=== PATIENT | female | born 1950 | race African-American/Black ===

== ENCOUNTER 2017-05-26 10:38 | Inpatient (IN) | payer MEDICARE, BC ==
--- NOTE | 2017-05-14 19:37 | HP ---
HISTORY AND PHYSICAL: DATE OF ADMISSION/SURGERY: 05/26/17 SURGEON: Triny Armendariz MD.* (DICTATED BY SHARIF HERNANDEZ) PROCEDURE: Right total hip arthroplasty. CHIEF COMPLAINT: Right hip pain. HISTORY OF PRESENT ILLNESS: Ms. Leung is a 67-year-old female with complaints of right hip pain secondary to end-stage osteoarthritis. She has failed conservative management and elected to proceed with a right total hip arthroplasty, which is scheduled for 05/26/[address] Armendariz. PAST MEDICAL HISTORY: 1. Hypertension. 2. Asthma. 3. High cholesterol. PAST SURGICAL HISTORY: 1. Hernia repair x2. 2. Hysterectomy. 3. Removal of throat polyps. CURRENT MEDICATIONS: 1. Oxybutynin. 2. Hydrochlorothiazide 25 mg daily. 3. Lisinopril 40 mg daily. 4. Metoprolol 25 mg daily. 5. Pravastatin sodium 20 mg q.h.s. 6. Diclofenac sodium 1% gel as needed. 7. Meloxicam 7.5 mg twice daily as needed. 8. Fexofenadine 180 mg daily. 9. Montelukast sodium 10 mg daily. 10. ProAir HFA. 11. QVAR. 12. EpiPen. ALLERGIES: To PERCOCET, which causes vomiting, EGGS and the FLU SHOT. FAMILY HISTORY: Hypertension, diabetes, pancreatic and stomach cancer. SOCIAL HISTORY: She is a 67-year-old female, she lives alone. She occasionally smokes cigarettes and marijuana and uses occasional alcohol. REVIEW OF SYSTEMS: A complete 14-point review of systems was reviewed with the patient and was positive for asthma. She denies history of DVT, PE, hepatitis C , HIV, or anesthesia problems. PHYSICAL EXAMINATION GENERAL: She is well developed, well nourished, in no acute distress. VITAL SIGNS: She stands 5 feet 5 inches tall, weighs 215 pounds. Her blood pressure is 132/90, her heart rate is 82. HEENT: Normocephalic, atraumatic. NECK: Supple. No palpable lymph nodes. PULMONARY: Lungs are clear to auscultation bilaterally. CARDIO: Regular rate and rhythm. Strong S1, S2. ABDOMEN: Soft, nontender, and nondistended. NEUROLOGICAL: She is alert and oriented x3. Cranial nerves II through XII are intact. MUSCULOSKELETAL: Right lower extremity, the skin is intact. There is no open wounds or abrasions. She has decreased internal and external rotation of the right hip. She walks with an antalgic type gait favoring the right hip. Her lower extremity muscle group strengths are intact at 5/5. She has intact sensation and 2+ dorsalis pedis pulses. ASSESSMENT AND PLAN: Ms. Leung is a 67-year-old female with continued complaints of right hip pain secondary to end-stage osteoarthritis. She has failed conservative management and elected to proceed with a right total hip arthroplasty, which is scheduled for 05/26/[address] Armendariz discussed the risks and benefits of the surgery at today's visit and all of her questions were answered. Coumadin, Colace, and PERCOCET were sent to her pharmacy for postoperative pain control and DVT prophylaxis. She will follow up with Dr. Armendariz 2 weeks after the surgery. SHARIF HERNANDEZ [id number]/[facility] #: [id number] [facility]ASS[facility] HOSPITALGenaro
[~2017-05-26 10:38] MED LIST: Buffered Lidocaine 0.9% SYRIN* 5 ML/SYR SYRINGE INTRADERM ONE; Dexamethasone IV* 4 MG/ML 1 ML (4 MG) IV SLOW PU ONE; Famotidine IV* 10 MG/ML 2 ML (20 mg) IV ONE; Scopolamine 1.5 mg* PATCH TRANSDERM ONE
[2017-05-26] MEDS ORDERED: ceFAZolin 2 GM PREMIX (*) 2 GM/50 ML BAG IVPB ONE (10:43)
[2017-05-26] MEDS ORDERED: Dexamethasone IV* 4 MG/ML 1 ML (4 MG) ONE (10:43)
[2017-05-26] MEDS ORDERED: Scopolamine 1.5 mg* PATCH ONE (10:43)
[2017-05-26] MEDS ORDERED: Famotidine IV* 10 MG/ML 2 ML (20 mg) ONE (10:43)
[2017-05-26] MEDS ORDERED: Buffered Lidocaine 0.9% SYRIN* 5 ML/SYR SYRINGE ONE (10:43)
--- OUTSIDE RECORDS SUMMARY | 2017-05-26 10:45 | XMS REPORT ---
:1950 External Reference #:[id number] Author Organization [employer] Address [address] [address] Phone [phone] Care Team Providers Name Role Phone Lety William MD Primary Care Physician Unavailable Payers Type Date Identification Numbers Payment Provider Subscriber Medicare Primary Effective: Policy Number: Medicare Kaylynn Leung 2017 [id number] PayID: [id number] [address] [place] [address] Medigap Part B Policy Number: [id number] [facility] Kaylynn Leung PayID: [id number] [address] [place] [address] Health Maintenance Effective: Policy Number: BS [facility] Kaylynn Garcia ([facility] [place]) 12/14/2006 [id number] Madhu Expires: 05/03/2008 PayID: [id number] [address] [address] [place] [address] Problems Date Description Provider Status Onset: 10/17/2016 Localized, primary osteoarthritis of the Triny Armendariz M.D. Active pelvic region and thigh Family History Date Family Member(s) Problem(s) Comments General Hypercholesterolemia General Hypertension General Diabetes General Stomach Cancer father General Pancreatic Cancer maternal uncle Social History Type Date Description Comments Lives With Alone Occupation Retired Smokeless Tobacco Never Used Smokeless Tobacco ETOH Use Rarely consumes alcohol Smoking Patient is a former smoker quit March 2013 Exercise Type/Frequency Exercises regularly Allergies, Adverse Reactions, Alerts Date Description Reaction Status Severity Comments 03/09/2007 Percocet active vomiting 03/09/2007 Eggs active 10/17/2016 Flu Shot active 03/09/2007 NKDA inactive Medications Medication Date Status Form Strength Qnty SIG Indications Ordering Provider Coumadin 05/13 Active Tablets 2mg 90tab take 1-3 s tabs by Marcello, mouth at M.D. 5 at night as directed [place] 05/13 Active Tablets 5-325mg 90tab 1-2 tabs s by mouth Marcello, every 4-6 M.D. hours Colace 05/13 Active Capsules 100mg 90cap 1 tab by s mouth 2-3 Marcello, times a M.D. day as needed Oxybutynin Active Unknown (Generic) /0000 Hydrochlorothiazide Active 25mg Unknown / Lisinopril Active 40mg Unknown (Generic) /0000 Metoprolol Active Tablets 25mg 1 by Unknown Succinate ER /0000 ER 24HR mouth every day Pravastatin Sodium Active Tablets 20mg 1 tablet Unknown (Generic) /0000 by mouth once daily at bedtime Diclofenac Sodium Active Gel 1% Unknown / Cyclobenzaprine HCL Active Tablets 5mg take one Unknown /0000 tablet by mouth every 8 hours prn. may take a second tablet if first not effetive. Meloxicam Active Tablets 7.5mg take one Unknown /0000 tab twice daily as needed for pain, avoid other nsaids Fexofenadine HCL Active Tablets 180mg once Unknown /0000 daily Montelukast Sodium Active Tablets 10mg 1 by Unknown (Generic) /0000 mouth every day Proair HFA Active Aerosol 108(90Bas 2 puffs Unknown /0000 e) by mouth mcg/Act every 4 hours as needed Qvar Active Aerosol 80mcg/Act 2 puff Unknown /0000 twice a day Epipen 2-Clay Active Solution 0.3mg/0.3 use as Unknown /0000 Auto-Inje ML directed ct Stephanie 03/09 Hx Tablets 180mg 90tab 1 PO qd Jean E. /2006 s prYeni Griffin MBryant 10/16 Lasix Hx Tablets 40mg 90tab 1 PO qd Barken, / s MD Alberto - 06/02 Proventil Hx Aerosol 90mcg/Act 1unit 2 Puffs Bark, s PO palak Dominguez MD - prn 06/02 Vanceril 00/00 Hx 1unit 2 puffs Other /0000 s po qid Physician - Practices 06/02 Diovan Hx Tablets 160mg 30tab 1 po qd Jean E. /0000 Yeni Reddy M.D. 06/02 Singulair Hx Tablets 10mg 30tab 1 po qd Jean E. /0000 Yeni Reddy M.D. 10/16 Crestor Hx Unknown / - 10/16 Ventolin HFA Hx Unknown / - 10/16 Medications Administered in Office Medication Date Status Form Strength Qnty SIG Indications Ordering Provider Depomedrol Administered Injection Jeri 80MG Melodie Guaman M.D. Depomedrol Administered Injection Jeri 20MG Melodie Guaman M.D. Depomedrol Administered Injection Jeri 20MG Melodie Guaman M.D. Immunizations CPT Code Status Date Vaccine Lot # [id number] Given 02/01/2004 Td (History By Patient) Vital Signs Date Vital Result Comment 05/13/2017 Height 65.5 inches 5'5.50" Weight 215.00 lb w/ shoes Heart Rate 82 /min reg BP Systolic Sitting 132 mmHg Lue, lg cuff BP Diastolic Sitting 90 mmHg Lue, lg cuff Respiratory Rate 16 /min Pain Level 8 right hip/groin BMI (Body Mass Index) 35.2 kg/m2 10/17/2016 Height 65.5 inches 5'5.50" Weight 213.00 lb Heart Rate 68 /min BP Systolic 136 mmHg BP Diastolic 88 mmHg BMI (Body Mass Index) 34.9 kg/m2 06/02/2013 Height 66 inches 5'6" Weight 210.00 lb Heart Rate 83 /min BP Systolic 127 mmHg BP Diastolic 85 mmHg BMI (Body Mass Index) 33.9 kg/m2 04/08/2007 Height 66 inches 5'6" Weight 219.00 lb Heart Rate 76 /min BP Systolic Sitting 156 mmHg BP Diastolic Sitting 76 mmHg BMI (Body Mass Index) 35.3 kg/m2 03/09/2007 Height 66 inches 5'6" Weight 226.00 lb Heart Rate 72 /min BP Systolic Sitting 136 mmHg BP Diastolic Sitting 84 mmHg BMI (Body Mass Index) 36.5 kg/m2 Results Test Date Test Result H/L Range Note CBC W/ Electronic Diff 03/11/2007 White Blood Count 10.3 CUMM 4.8-10.8 1 Abs Basophils 0.1 0-0.2 1 Abs Eosinophils 0.5 0-0.6 1 Absolute Neutrophil Count 5.7 1.5-7.7 1 Abs Lymphs 3.3 1.0-4.8 1 Abs Mononuclear 0.7 0-0.8 1 Basophil % 0.7 % 0-2 1 Hematocrit 43 % 35-47 1 Hemoglobin 14.0 g/dL 12.0-16.0 1 Eosinophil % 4.7 % 0-6 1 Gran % 55.8 % 38-83 1 Lymph % 32.5 % 20-45 1 Mean Corpuscular HGB Cone 32 g/dL 32-36 1 Mean Corpuscular Hemoglob 26 pg Low 27-31 1 Mean Corpuscular Volume 80 um3 79-97 1 Mean Platelet Volume 9.2 um3 7.4-10.4 1 Mononuclear % 6.3 % 1-9 1 Platelet Count 268 CUMM 150-450 1 Red Cell Count 5.42 CUMM High 4.2-5.4 1 Redcell Distribution WDTH 16 % High 10.5-15 1 Comp Metabolic Panel 03/11/2007 One Over Creatinine 1.00 1 Anion Gap 5.0 mmol/L 2-11 1, 2 Albumin/Globulin Ratio 1.3 1-3 1 Albumin 4.1 GM/DL 3.6-5.4 1 Alkaline Phosphatase 86 U/L 30-110 1 Alt (SGPT) 32 U/L 14-54 1 Ast (Sgot) 22 U/L 12-42 1 BUN 20 mg/dL 6-24 1 Calcium 9.5 mg/dL 8.7-10.2 1 Chloride 108 mmol/L 101-111 1 Co2 (Carbon Dioxide) 26.0 mmol/L 22-32 1 Globulin 3.2 GM/DL 2-4 1 Glucose 92 mg/dL 70-105 1 Potassium 4.4 mmol/L 3.5-5.0 1 Sodium 139 mmol/L 135-145 1 Bilirubin Total 0.6 mg/dL 0.4-1.5 1 Total Protein 7.3 GM/DL 6.2-8.1 1 BUN/Creatinine Ratio 20.0 8-20 1 Creatinine 1.0 mg/dL 0.5-1.4 1 Lipid Profile 03/11/2007 Cholesterol/HDL Ratio 5.67 AVERAGE High 1-4.44 1 (Trig/Chol/HDL) Cholesterol 278 mg/dL High Less Than 200 1, 3 Triglyceride 191 mg/dL 40-200 1 High Density Lipoprotein 49 mg/dL 40-60 1 Low Density Lipoprotein 191 mg/dL High Less Than 100 1, 4 Laboratory test finding 03/11/2007 TSH 0.78 MIU/ML 0.34-5.60 1 1 PATIENT MAY HAVE RESULTS PER DOCTOR'S AUTHORIZATION. Questions regarding this report should be directed to your doctor. 2 Anion gap measurement may be of limited value in the presence of any alkalosis, especially in a combined acid base disorder. . 3 Classification: High . 4 CALCULATED LDL APPROXIMATES THE VALUE OF A DIRECT LDL MEASUREMENT. Classification: Very High . Procedures Date CPT Code Description Status Comment 06/02/2013 Inject Tendon Sheath Or Ligament Aponeurosis Eg Completed RT Plantar Fascia 06/02/201343600 Inject Tendon Sheath Or Ligament Aponeurosis Eg Completed Plantar Fascia 09/30/2007 85572 Color Doppler Completed 09/30/2007 02578 Pulse Doppler & Continuous Wave Completed 09/30/2007 76901 Pulse Doppler & Continuous Wave Completed 09/30/2007 34683 Echocardiogram Completed Encounters Type Date Location Provider CPT E/M Dx Office Visit 10/17/2016 [facility] Tr[facility] Armendariz M.D. 42478 M25.551 2:00p Of Millie M16.11 Office Visit 06/02/2013 1:45p [facility] Jeri Guaman, 8[address]11 727.03 Of Millie Rankin 727.04 Office Visit 04/08/2007 10:15a [facility], [address] [facility] 03/09/2007 2:30p [facility], [address] 401.1 [facility] Future Appointment(s):06/08/2017 8:30 am - Triny Armendariz M.D. at [facility].05/26/2017 12:30 pm - SHARIF Arroyo at [facility].A.05/26/2017 12:30 pm - SHARIF Angel at [facility].A.05/26/2017 12:30 pm - Triny Armendariz M.D. at [facility].A.05/13/2017 - Triny Armendariz M.D.M25.551 Pain in right hipFollow up:Follow up: 2 weeks after jitksqlL06.11 Unilateral primary osteoarthritis, right hip
--- OUTSIDE RECORDS SUMMARY | 2017-05-26 10:46 | XMS REPORT ---
:1950 External Reference #:[id number] Author Organization [facility] Address [address] [place] [address] Phone [phone] Care Team Providers Name Role Phone Lety William M.D. 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 Primary Care Physician Unavailable Payers Type Date Identification Numbers Payment Provider Subscriber Medicare Primary Policy Number: [id number] Medicare [place]nn Leung PayID: [id number] [address] [place] [address] Medigap Part B Effective: Policy Number: Trisha Leung 2008 [id number] Health Care PayID: [id number] [address] [place] [address] Problems Date Description Provider Status Onset: 05/30/2009 Essential hypertension Catarina Wei M.D. Active Onset: 05/30/2009 Hyperlipidemia Catarina Wei M.D. Active Onset: 04/17/2015 Mild persistent asthma Enrike Rodriguez M.D. Active Onset: 10/08/2016 Localized, primary osteoarthritis Lety William M.D. Active of the pelvic region and thigh Onset: 05/30/2009 Overweight Catarina Wei M.D. Resolved Resolved: 10/08/2016 Onset: 10/28/2011 Neoplastic disease of uncertain Catarina Wei M.D. Resolved behavior Resolved: 10/08/2016 Onset: 11/07/2011 Disorder of skin AND/OR Catarina Wei M.D. Resolved subcutaneous tissue Resolved: 10/08/2016 Onset: 09/09/2012 Cellulitis Catarina Wei M.D. Resolved Resolved: 10/08/2016 Onset: 10/04/2012 Intrinsic asthma without status Catarina Wei M.D. Resolved asthmaticus Resolved: 10/08/2016 Family History Date Family Member(s) Problem(s) Comments General No family history of breast or colon cancer. 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 Cigarette Use Former Cigarette Smoker 30 yrs ETOH Use Social Alcohol Recreational Drug Use Denies Drug Use Smoking Patient is a former smoker Exercise Type/Frequency Current Exercises regularly Allergies, Adverse Reactions, Alerts Date Description Reaction Status Severity Comments 09/16/2007 Percocet active 09/16/2007 Eggs active 08/30/2008 Dairy active 08/30/2008 [place]ton active 08/30/2008 Apples active 08/30/2008 Carrots active 08/30/2008 Celery active 11/01/2008 Melon active ALL Melons 11/01/2008 Squash active Cough 05/12/2014 [place] active 06/18/2016 Gelatin active Medications Medication Date Status Form Strength Qnty SIG Indications Ordering Provider Acetaminophen-Code 04/29 Active Tablets 300-30mg 30tab 1 tab by M16.11 Lety ine # s mouth Stewart, every 6 M.D. hours as needed Oxybutynin 06/18 Active Tablets 10mg 90tab 1 by mouth N39.46 Lety Chloride ER 24HR s daily Massiel William Metoprolol 06/18 Active Tablets 25mg 90tab 1 by mouth I10 Lety Succinate ER 24HR s every day Massiel William Voltaren 04/16 Active Gel 1% 1unit apply 2 M79.651 s gram to Michele, painful OBSTETRICAL TECH area four times a day Meloxicam 10/16 Active Tablets 7.5mg 60tab take one M15.0 s tablet by Michele, mouth OBSTETRICAL TECH twice a day as needed for osteoarthr itis pain Pravastatin Sodium 05/01 Active Tablets 20mg 90tab 1 by mouth E78.2 s every Michele, night OBSTETRICAL TECH Lisinopril 06/20 Active Tablets 40mg 90tab 1 by mouth I10 s every day Massiel William Hydrochlorothiazid 06/20 Active Tablets 25mg 90tab 1 by mouth I10 s every day Massiel William Albuterol 09/15 Active Aerosol 90mcg/Act 2unit 1-2 Puffs J45.30 s qid pr[facility] 09/15 Active Tablets 10mg 90tab 1 by mouth J45.30 s every day Massiel William Fexofenadine HCL 09/15 Active Tabs 180mg 30tab take 1 Pena . s tablet by Massiel Wei mouth once daily Qvar 00 Active Aerosol 80mcg/Act prn Unknown /0000 Cyclobenzaprine 04/16 Hx Tablets 5mg 30tab 1 by mouth M79.651 Jaclyn HCL /2015 s twice a Michele, - day OBSTETRICAL TECH 04/28 Blood Pressure 10/16 Hx Device 1unit dispense I10 Jaclyn Monitor /2015 s one Hany Bautista/Automatic - machine OBSTETRICAL TECH 06/17 Oxybutynin 01/13 Hx Tablets 5mg 90tab take 2 N39.46 Jaclyn Chloride ER /2014 ER 24HR s tablet by Michele, - mouth once OBSTETRICAL TECH 06/18 Pravastatin Sodium 12/13 Hx Tablets 10mg 30tab 1 by mouth E78.2 Enrike Rodriguez, /2014 s every M.D. - night 05/01 Toviaz 11/10 Hx Tablets 4mg 30tab 1 by mouth 788.33 Enrike Rodriguez, /2014 ER 24HR s every day M.D. - 04/17 Doxycycline 09/09 Hx Tablets 100mg 20tab one tab po 682.8 Pena A. Monohydrate /2012 s bid for 10 Massiel Wei - days 04/05 Azithromycin 04/13 Hx Tablets 250mg 6tabs 2 po today 465.9 Pena A. /2011 and 1 po x Massiel Wei - 4 days 09/09 Prednisone 04/13 Hx Tablets 10mg 30tab 2 bid x 465.9 Pena A. s 3daysKana M.D. - then 3 qd 09/09 x 3 days, /2012 then 1 bid x 3 days then 1 qd x 3 Azithromycin 04/09 Hx Tablets 250mg 6tabs 2 po today Catarina . /2010 and 1 po x Massiel Wei - 4 days 10/06 Oxybutynin 04/02 Hx Tablets 5mg 90tab take 1 788.33 Enrikemolly Rodriguez, Chloride ER /2009 ER 24HR s tablet by Massiel - mouth once 11/10 daily Amlodipine 06/13 Hx Tablets 10mg 90tab 1 po qd 401.9 Catarina A. Besylate /2009 s Massiel Wei - 06/27 Lisinopril-Hydroch 06/06 Hx Tablets 20-25mg 90tab one tab po 401.9 Catarina A. lorothiazide /2009 s daily Massiel Wei - 06/27 Lisinopril-Hydroch 05/30 Hx Tablets 10-12.5mg 90tab 1 po qd 401.9 Catarina A. lorothiazide /2009 s Massiel Wei - 06/06 Metoprolol 08/17 Hx Tablets 25mg 60tab 1 po bid 401.9 Catarina Butcher. Tartrate /2008 s Massiel Wei - 05/30 Crestor 08/02 Hx Tablets 5mg 90tab take 1 272.4 Enrike Rodriguez, s tablet by Massiel - mouth once 11/10 Furosemide 01/26 Hx Tablets 20mg 30tab 1 PO prn Catarina A. s for leg Massiel Wei - swelling 08/17 Hydrochlorothiazid 01/26 Hx Tablets 25mg 30tab take 1 401.9 Catarina A. s tablet Massiel Wei - every 05/30 Chantix 11/03 Hx Misc 1unit 1 starter 305.1 Catarina A. s pack as Massiel Wei - directed, 01/26 refill maintenanc e packs x 3 months Pravachol 10/04 Hx Tablets 10mg 30tab 1 po qd 272.4 Catarina A. kole Wei M.D. - 08/02 Furosemide 09/15 Hx Tablets 40mg 60tab 1 PO daily [facility] Diovan 09/15 Hx Tabs 160mg 30tab take 1 Pena A. /2007 s tablet by Massiel Wei - mouth once 05/30 /2010 Prednisone Hx Tablets 5mg 30tab 1 PO qd Unknown /0000 s - 08/02 Avelox Hx Tablets 400mg 7tabs 1 PO qd Unknown /0000 - 08/02 Immunizations CPT Code Status Date Vaccine Lot # [id number] Given 10/21/2012 Pneumococcal Immunization [id number] Given 10/04/2012 Zostivax [id number] Given 11/01/2008 Tdap Tetanus, W Pertussis [id number] Vital Signs Date Vital Result Comment 04/29/2017 BP Systolic 130 mmHg BP Diastolic 66 mmHg Heart Rate 80 /min Body Temperature 98.1 F Respiratory Rate 18 /min Height 65.5 inches 5'5.50" Weight 216.00 lb BMI (Body Mass Index) 35.4 kg/m2 10/08/2016 BP Systolic 138 mmHg BP Diastolic 88 mmHg Heart Rate 72 /min Body Temperature 98.1 F Respiratory Rate 16 /min Height 65.5 inches 5'5.50" Weight 214.00 lb BMI (Body Mass Index) 35.1 kg/m2 07/08/2016 BP Systolic 140 mmHg BP Diastolic 80 mmHg Heart Rate 76 /min Respiratory Rate 16 /min Height 65.5 inches 5'5.50" Weight 213.00 lb BMI (Body Mass Index) 34.9 kg/m2 06/18/2016 BP Systolic 162 mmHg BP Diastolic 90 mmHg Heart Rate 96 /min Body Temperature 98.1 F Height 65.5 inches 5'5.50" 04/16/2016 BP Systolic 170 mmHg BP Diastolic 96 mmHg Heart Rate 72 /min Body Temperature 98.1 F Respiratory Rate 16 /min Height 65.5 inches 5'5.50" Weight 211.38 lb BMI (Body Mass Index) 34.6 kg/m2 10/17/2015 BP Systolic 122 mmHg BP Diastolic 70 mmHg Heart Rate 72 /min Body Temperature 98.0 F Respiratory Rate 16 /min Height 65.5 inches 5'5.50" Weight 212.00 lb BMI (Body Mass Index) 34.7 kg/m2 04/17/2015 BP Systolic 118 mmHg BP Diastolic 72 mmHg Heart Rate 74 /min Body Temperature 97.7 F Height 65.5 inches 5'5.50" Weight 216.00 lb BMI (Body Mass Index) 35.4 kg/m2 11/10/2014 BP Systolic 120 mmHg BP Diastolic 70 mmHg Heart Rate 72 /min Body Temperature 96.6 F Respiratory Rate 16 /min Height 65.5 inches 5'5.50" Weight 211.00 lb BMI (Body Mass Index) 34.6 kg/m2 05/12/2014 BP Systolic 126 mmHg BP Diastolic 82 mmHg Heart Rate 80 /min Body Temperature 97.7 F Respiratory Rate 16 /min Height 66 inches 5'6" Weight 210.00 lb BMI (Body Mass Index) 33.9 kg/m2 10/04/2013 BP Systolic 124 mmHg BP Diastolic 74 mmHg Heart Rate 90 /min Body Temperature 97.3 F Height 66 inches 5'6" Weight 209.00 lb pt stated BMI (Body Mass Index) 33.7 kg/m2 04/05/2013 BP Systolic 130 mmHg BP Diastolic 80 mmHg Heart Rate 64 /min Body Temperature 97.7 F Respiratory Rate 16 /min Height 66 inches 5'6" 10/04/2012 BP Systolic 124 mmHg BP Diastolic 72 mmHg Heart Rate 70 /min Body Temperature 97.7 F Respiratory Rate 18 /min Height 66 inches 5'6" 09/09/2012 BP Systolic 148 mmHg BP Diastolic 83 mmHg Heart Rate 86 /min Body Temperature 98.4 F Respiratory Rate 16 /min Height 66 inches 5'6" 04/13/2012 BP Systolic 130 mmHg BP Diastolic 80 mmHg Heart Rate 62 /min Body Temperature 96.8 F Height 66 inches 5'6" 11/07/2011 BP Systolic 130 mmHg BP Diastolic 80 mmHg Heart Rate 60 /min Body Temperature 97.7 F Respiratory Rate 20 /min Height 66 inches 5'6" 10/28/2011 BP Systolic 110 mmHg BP Diastolic 72 mmHg Heart Rate 78 /min Body Temperature 97.5 F Height 66 inches 5'6" 10/07/2011 BP Systolic 110 mmHg BP Diastolic 72 mmHg Heart Rate 78 /min Body Temperature 97.4 F Height 66 inches 5'6" 04/09/2011 BP Systolic 122 mmHg BP Diastolic 70 mmHg Heart Rate 90 /min Body Temperature 98.7 F Height 66 inches 5'6" 10/08/2010 BP Systolic 120 mmHg BP Diastolic 80 mmHg Heart Rate 78 /min Height 66 inches 5'6" 04/09/2010 BP Systolic 120 mmHg BP Diastolic 80 mmHg Heart Rate 80 /min Body Temperature 98.3 F Height 66 inches 5'6" 04/02/2010 BP Systolic 138 mmHg BP Diastolic 64 mmHg Heart Rate 78 /min Height 66 inches 5'6" 09/26/2009 BP Systolic 126 mmHg BP Diastolic 82 mmHg Heart Rate 90 /min Height 66 inches 5'6" 06/27/2009 BP Systolic 130 mmHg BP Diastolic 90 mmHg Heart Rate 82 /min 06/20/2009 BP Systolic 148 mmHg BP Diastolic 84 mmHg Heart Rate 84 /min Body Temperature 98.2 F Height 66 inches 5'6" Weight 240.00 lb Stated BMI (Body Mass Index) 38.7 kg/m2 06/13/2009 BP Systolic 148 mmHg BP Diastolic 82 mmHg Heart Rate 84 /min Body Temperature 98.3 F Height 66 inches 5'6" 06/06/2009 BP Systolic 164 mmHg BP Diastolic 94 mmHg Heart Rate 84 /min Body Temperature 98.2 F 05/30/2009 BP Systolic 142 mmHg BP Diastolic 88 mmHg Heart Rate 80 /min Weight 235.00 lb Stated By PT 12/04/2008 BP Systolic 140 mmHg BP Diastolic 90 mmHg Heart Rate 64 /min Body Temperature 97.5 F Respiratory Rate 20 /min 11/01/2008 BP Systolic 158 mmHg BP Diastolic 108 mmHg Heart Rate 72 /min Height 66 inches 5'6" Weight 239.00 lb BMI (Body Mass Index) 38.6 kg/m2 08/30/2008 BP Systolic 112 mmHg BP Diastolic 90 mmHg Heart Rate 72 /min Body Temperature 97.7 F Weight 233.00 lb 08/17/2008 BP Systolic 148 mmHg BP Diastolic 98 mmHg Heart Rate 76 /min Body Temperature 98.0 F Respiratory Rate 20 /min Weight 233.00 lb 08/02/2008 BP Systolic 140 mmHg BP Diastolic 82 mmHg Heart Rate 88 /min Body Temperature 97.9 F Respiratory Rate 20 /min 02/03/2008 BP Systolic 124 mmHg BP Diastolic 72 mmHg Heart Rate 72 /min Height 66 inches 5'6" Weight 224.00 lb BMI (Body Mass Index) 36.2 kg/m2 01/27/2008 BP Systolic 150 mmHg BP Diastolic 98 mmHg Heart Rate 72 /min Height 66 inches 5'6" Weight 218.00 lb BMI (Body Mass Index) 35.2 kg/m2 11/04/2007 BP Systolic 126 mmHg BP Diastolic 78 mmHg Body Temperature 98.3 F Height 66 inches 5'6" Weight 217.00 lb BMI (Body Mass Index) 35.0 kg/m2 10/05/2007 BP Systolic 130 mmHg BP Diastolic 86 mmHg Heart Rate 56 /min Height 66 inches 5'6" Weight 222.00 lb BMI (Body Mass Index) 35.8 kg/m2 09/16/2007 BP Systolic 170 mmHg BP Diastolic 100 mmHg Heart Rate 72 /min Height 66 inches 5'6" Weight 223.00 lb BMI (Body Mass Index) 36.0 kg/m2 Results Test Date Test Result H/L Range Note Laboratory test finding 10/08/2016 TSH 1.04 mIU/L 0.50-6.00 Comprehensive Metabolic Prof 10/08/2016 Sodium 139 mEq/L 134-149 Potassium 4.1 mEq/L 3.6-5.5 Chloride 98 mEq/L 94-112 Carbon Dioxide 23 mEq/L 21-32 Glucose 99 mg/dL 70-105 BUN 17 mg/dL 6-26 Creatinine 0.9 mg/dL 0.6-1.4 BUN/Creat Ratio 18.9 CALC 8.0-36.0 Calcium 10.0 mg/dL 8.6-10.2 Total Protein 6.8 g/dL 6.4-8.3 Albumin 4.5 g/dL 3.8-5.5 Globulin 2.3 g/dL 2.0-4.8 A/G Ratio 2.0 CALC 0.6-2.3 Alk. Phosphatase 71 U/L 30-110 Alt (SGPT) 17 U/L 7-35 Ast (Sgot) 17 U/L 5-34 Total Bilirubin 0.5 mg/dL 0.2-1.3 GFR Non- >60 ml/min/1.73m^ >=60 GFR >60 ml/min/1.73m^ >=60 Complete Blood Count 10/08/2016 WBC 8.5 x10^3/UL 3.6-9.6 RBC 5.27 x10^6/UL 3.90-5.70 HGB 13.7 g/dL 12.1-17.2 HCT 42 % 36-50 MCV 80.0 fL Low 82.2-97.4 MCH 26.0 pg Low 27.6-33.3 MCHC 32.4 g/dL Low 33.0-35.5 RDW 14.9 % High 11.6-13.7 PLT 257 x10^3/UL 150-400 MPV 7.5 fL 7.4-10.4 Gran # 4.9 x10^3/UL 1.5-7.2 Lymph# 3.2 x10^3/UL 0.7-4.9 Craven# 0.4 x10^3/UL 0.1-0.9 Gran % 56.3 % 42.2-75.2 Lymph % 38.3 % 20.5-51.1 Craven% 5.4 % 1.7-9.3 Lipid Profile 10/08/2016 Cholesterol 223 mg/dL High 120-200 Triglycerides 195 mg/dL 30-200 HDL Cholesterol 54 mg/dL 30-85 LDL (Calculated) 130 CALC High 0-129 VLDL Cholesterol 39 mg/dL 0-50 HDL Risk Factor 4.1 CALC 0.0-4.4 Microscopic Examination 04/16/2016 Reflex Microscopic Examination See below : WBC 6-10 /hpf 0 - 5 RBC 0-2 /hpf 0 - 2 Epithelial Cells (non renal) 0-10 /hpf 0 - 10 Epithelial Cells (renal) TNP Casts TNP Cast Type TNP Crystals TNP Crystal Type TNP Mucus Threads Present Not Estab. Bacteria Few None seen/Few Yeast TNP Trichomonas TNP Comment TNP Urinalysis, Complete 04/16/2016 Specific Carey 1.017 1.005-1.030 pH 6.0 5.0-7.5 Urine-Color Yellow Yellow Appearance Clear Clear WBC Esterase 1+ Negative Protein Negative Negative/Trace Glucose Negative Negative Ketones Negative Negative Occult Blood Negative Negative Bilirubin Negative Negative Urobilinogen,Semi-Qn 0.2 EU/dL 0.2-1.0 Nitrite, Urine Negative Negative Microscopic Examination TNP CBC With Differential/Platelet 04/16/2016 WBC 9.0 x10E3/uL 3.4-10.8 RBC 5.21 x10E6/uL 3.77-5.28 Hemoglobin 13.2 g/dL 11.1-15.9 Hematocrit 41.6 % 34.0-46.6 MCV 80 fL 79-97 MCH 25.3 pg Low 26.6-33.0 MCHC 31.7 g/dL 31.5-35.7 RDW 16.4 % High 12.3-15.4 Platelets 339 x10E3/uL 150-379 Neutrophils 49 % Lymphs 37 % Monocytes 8 % Eos 5 % Basos 1 % Immature Cells TNP Neutrophils (Absolute) 4.5 x10E3/uL 1.4-7.0 Lymphs (Absolute) 3.3 x10E3/uL High 0.7-3.1 Monocytes(Absolute) 0.7 x10E3/uL 0.1-0.9 Eos (Absolute) 0.4 x10E3/uL 0.0-0.4 Baso (Absolute) 0.1 x10E3/uL 0.0-0.2 Immature Granulocytes 0 % Immature Grans (Abs) 0.0 x10E3/uL 0.0-0.1 NRBC TNP Hematology Comments: TNP Thinprep/HPV(W/History) 04/16/2016 HPV, Aptima High Negative Negative 1 , 2 16/18,45 Pap Smear 04/16/2016 Diagn See Comment: 1, 3 Adeq See Comment: 1, 4 [email or web address] See Comment: 1, 5 Perfor See Comment: 1, 6 Comm . 1 Note See Comment: 1, 7 Iglbp See Comment: 1, 8 Lipid Panel 04/16/2016 Cholesterol, Total 221 mg/dL High 100-199 Triglycerides 154 mg/dL High 0-149 HDL Cholesterol 51 mg/dL >39 VLDL Cholesterol Manuel 31 mg/dL 5-40 LDL Cholesterol Calc 139 mg/dL High 0-99 Comment: [facility] Laboratory test finding 04/16/2016 PDF [id number] SEE IMAGE 1 Metabolic Panel (14), 04/16/2016 Glucose, Serum 92 mg/dL 65-99 Comprehensive BUN 17 mg/dL 8-27 Creatinine, Serum 0.91 mg/dL 0.57-1.00 eGFR If NonAfricn Am 67 mL/min/1.73 >59 eGFR If Africn Am 77 mL/min/1.73 >59 BUN/Creatinine Ratio 19 11-26 Sodium, Serum 141 mmol/L 134-144 9 Potassium, Serum 4.7 mmol/L 3.5-5.2 Chloride, Serum 99 mmol/L 96-106 10 Carbon Dioxide, Total 25 mmol/L 18-29 Calcium, Serum 9.9 mg/dL 8.7-10.3 Protein, Total, Serum 7.0 g/dL 6.0-8.5 Albumin, Serum 4.4 g/dL 3.6-4.8 Globulin, Total 2.6 g/dL 1.5-4.5 A/G Ratio 1.7 1.1-2.5 Bilirubin, Total 0.3 mg/dL 0.0-1.2 Alkaline Phosphatase, S 77 IU/L 39-117 Ast (Sgot) 18 IU/L 0-40 Alt (SGPT) 15 IU/L 0-32 Microalb/Creat Ratio, Rand 10/17/2015 Creatinine, Urine 92.6 mg/dL Not Estab. 11 Ur Microalbumin, Urine 5.5 ug/mL Not Estab. 11 Microalb/Creat Ratio 5.9 mg/gcreat 0.0-30.0 11 Hemoglobin A1c 10/17/2015 Hemoglobin A1c 6.0 % High 4.8-5.6 11, 12 Comp. Metabolic Panel (14) 10/17/2015 Glucose, Serum 88 mg/dL 65-99 11 BUN 19 mg/dL 8-27 11 Creatinine, Serum 0.95 mg/dL 0.57-1.00 11 eGFR If NonAfricn Am 64 mL/min/1.73 >59 11 eGFR If Africn Am 74 mL/min/1.73 >59 11 BUN/Creatinine Ratio 20 11-26 11 Sodium, Serum 144 mmol/L 134-144 11 Potassium, Serum 4.6 mmol/L 3.5-5.2 11 Chloride, Serum 103 mmol/L 97-108 11 Carbon Dioxide, Total 23 mmol/L 18-29 11 Calcium, Serum 9.5 mg/dL 8.7-10.3 11 Protein, Total, Serum 7.0 g/dL 6.0-8.5 11 Albumin, Serum 4.2 g/dL 3.6-4.8 11 Globulin, Total 2.8 g/dL 1.5-4.5 11 A/G Ratio 1.5 1.1-2.5 11 Bilirubin, Total 0.3 mg/dL 0.0-1.2 11 Alkaline Phosphatase, S 77 IU/L 39-117 11 Ast (Sgot) 16 IU/L 0-40 11 Alt (SGPT) 13 IU/L 0-32 11 Laboratory test finding 10/17/2015 TSH 0.875 uIU/mL 0.450-4.500 11 Thyroxine (T4) Free, Direct, S 1.32 ng/dL 0.82-1.77 11 Lipid Panel 10/17/2015 Cholesterol, Total 211 mg/dL High 100-199 11 Triglycerides 203 mg/dL High 0-149 11 HDL Cholesterol 49 mg/dL >39 11, 13 VLDL Cholesterol Manuel 41 mg/dL High 5-40 11 LDL Cholesterol Calc 121 mg/dL High 0-99 11 Comment: TNP 11 Comp. Metabolic Panel (14) 04/17/2015 Glucose, Serum 92 mg/dL 65-99 14 BUN 10 mg/dL 8-27 14 Creatinine, Serum 0.92 mg/dL 0.57-1.00 14 eGFR If NonAfricn Am 66 mL/min/1.73 >59 14 eGFR If Africn Am 77 mL/min/1.73 >59 14 BUN/Creatinine Ratio 11 - 14 Sodium, Serum 141 mmol/L 134-144 14 Potassium, Serum 4.4 mmol/L 3.5-5.2 14 Chloride, Serum 99 mmol/L 97-108 14 Carbon Dioxide, Total 25 mmol/L 18-29 14 Calcium, Serum 10.2 mg/dL 8.7-10.3 14 Protein, Total, Serum 7.2 g/dL 6.0-8.5 14 Albumin, Serum 4.6 g/dL 3.6-4.8 14 Globulin, Total 2.6 g/dL 1.5-4.5 14 A/G Ratio 1.8 1.1-2.5 14 Bilirubin, Total 0.4 mg/dL 0.0-1.2 14 Alkaline Phosphatase, S 80 IU/L 39-117 14 Ast (Sgot) 18 IU/L 0-40 14 Alt (SGPT) 17 IU/L 0-32 14 Lipid Panel 04/17/2015 Cholesterol, Total 256 mg/dL High 100-199 14 Triglycerides 167 mg/dL High 0-149 14 HDL Cholesterol 64 mg/dL >39 14, 15 VLDL Cholesterol Manuel 33 mg/dL 5-40 14 LDL Cholesterol Calc 159 mg/dL High 0-99 14 Comment: DNR 14 Comprehensive Metabolic 11/10/2014 Glucose 96 mg/dL 70-100 14 BUN 12 mg/dL 4-18 14 Creatinine, Serum 0.94 mg/dL 0.50-1.10 14 Sodium 139 mmol/L 136-146 14 Potassium 4.0 mmol/L 3.5-5.3 14 Chloride 104 mmol/L 98-110 14 Carbon Dioxide 30 mmol/L 20-32 14 Albumin 4.6 g/dL 3.5-4.7 14 Protein, Total 7.4 g/dL 6.4-8.3 14 Calcium 10.5 mg/dL High 8.4-10.4 14 Alkaline Phosphatase 83 U/L 10-118 14 Sgot (Ast) 24 U/L 3-40 14 SGPT (Alt) 21 U/L 7-50 14 Bilirubin, Total 0.50 mg/dL 0.30-1.20 14 Lipid Panel 11/10/2014 Cholesterol, Total 250 mg/dL <200 14 Triglycerides 172 mg/dL <150 14 HDL Cholesterol 52 mg/dL 40-60 14 Chol/HDL Cholesterol 4.8 14, 16 LDL Cholesterol, Calc. 164 mg/dL 14, 17 LDL/HDL Cholesterol 3.2 14, 18 Egfr (Calculated) 11/10/2014 Estimated GFR (CALCULATED) 14 Egfr 65 14, 19 Egfr, -[place] 75 14, 20 Comprehensive Metabolic 05/12/2014 Glucose 91 mg/dL 70-100 21 BUN 13 mg/dL 4-18 21 Creatinine, Serum 0.85 mg/dL 0.50-1.10 21 Sodium 142 mmol/L 136-146 21 Potassium 3.8 mmol/L 3.5-5.3 21 Chloride 108 mmol/L 98-110 21 Carbon Dioxide 30 mmol/L 20-32 21 Albumin 4.7 g/dL 3.5-4.7 21 Protein, Total 7.6 g/dL 6.4-8.3 21 Calcium 10.0 mg/dL 8.4-10.4 21 Alkaline Phosphatase 86 U/L 10-118 21 Sgot (Ast) 23 U/L 3-40 21 SGPT (Alt) 22 U/L 7-50 21 Bilirubin, Total 0.40 mg/dL 0.30-1.20 21 Lipid Panel 05/12/2014 Cholesterol, Total 206 mg/dL <200 21 Triglycerides 119 mg/dL <150 21 HDL Cholesterol 57 mg/dL 40-60 21 Chol/HDL Cholesterol 3.6 21, 22 LDL Cholesterol, Calc. 125 mg/dL 21, 23 LDL/HDL Cholesterol 2.2 21, 24 Egfr (Calculated) 05/12/2014 Estimated GFR (CALCULATED) 21 Egfr 73 21, 25 Egfr, -[place] 85 21, 26 Egfr (Calculated) 04/05/2013 Estimated GFR (CALCULATED) 27 Egfr >60 27, 28 Egfr, -[place] >60 27, 29 Comprehensive Metabolic 04/05/2013 Glucose 91 mg/dL 70-100 27 BUN 13 mg/dL 4-18 27 Creatinine, Serum 0.82 mg/dL 0.50-1.10 27 Sodium 142 mmol/L 136-146 27 Potassium 4.3 mmol/L 3.5-5.3 27 Chloride 106 mmol/L 98-110 27 Carbon Dioxide 29 mmol/L 20-32 27 Albumin 4.3 g/dL 3.5-4.7 27 Protein, Total 7.2 g/dL 6.4-8.3 27 Calcium 9.7 mg/dL 8.4-10.4 27 Alkaline Phosphatase 82 U/L 10-118 27 Sgot (Ast) 21 U/L 3-40 27 SGPT (Alt) 19 U/L 7-50 27 Bilirubin, Total 0.60 mg/dL 0.30-1.20 27 Lipid Panel 04/05/2013 Cholesterol, Total 190 mg/dL <200 27 Triglycerides 128 mg/dL <150 27 HDL Cholesterol 53 mg/dL 40-60 27 Chol/HDL Cholesterol 3.6 27, 30 LDL Cholesterol, Calc. 111 mg/dL 27, 31 LDL/HDL Cholesterol 2.1 27, 32 Laboratory test finding 09/09/2012 Wound Culture Normal skin cristel <SEE 33 NOTE> Comprehensive Metabolic 04/13/2012 Glucose 97 mg/dL 70-100 34 BUN 16 mg/dL 4-18 34 Creatinine, Serum 1.01 mg/dL 0.50-1.10 34 Sodium 142 mmol/L 136-146 34 Potassium 4.3 mmol/L 3.5-5.3 34 Chloride 103 mmol/L 98-110 34 Carbon Dioxide 31 mmol/L 20-32 34 Albumin 4.6 g/dL 3.5-4.7 34 Protein, Total 7.5 g/dL 6.4-8.3 34 Calcium 9.6 mg/dL 8.4-10.4 34 Alkaline Phosphatase 115 U/L 10-118 34 Sgot (Ast) 23 U/L 3-40 34 SGPT (Alt) 41 U/L 7-50 34 Bilirubin, Total 0.30 mg/dL 0.30-1.20 34 Ua - Non Micro (Fma) 04/13/2012 Appearance CLEAR Color YELLOW Glucose NEG Bilirubin NEG Ketones NEG SP Grav 1.015 Blood NEG PH 6.0 Protein NEG Urobil 0.2 Nitrite NEG Leukocytes (Fma/[facility]rex) NEG Egfr (Calculated) 04/13/2012 Estimated GFR (CALCULATED) 34 Egfr 56 34, 35 Egfr, -[place] >60 34, 36 Laboratory test finding 10/28/2011 Surgical Pathology SEE NOTE 37 Lipid Panel 10/07/2011 Cholesterol, Total 177 mg/dL <200 38 Triglycerides 183 mg/dL <150 38 HDL Cholesterol 45 mg/dL 40-60 38 Chol/HDL Cholesterol 3.9 38, 39 LDL Cholesterol, Calc. 95 mg/dL 38, 40 LDL/HDL Cholesterol 2.1 38, 41 Comprehensive Metabolic 10/07/2011 Glucose 100 mg/dL 70-100 38 BUN 14 mg/dL 4-18 38 Creatinine, Serum 1.01 mg/dL 0.50-1.10 38 Sodium 139 mmol/L 136-146 38 Potassium 3.9 mmol/L 3.5-5.3 38 Chloride 102 mmol/L 98-110 38 Carbon Dioxide 30 mmol/L 20-32 38 Albumin 4.5 g/dL 3.5-4.7 38 Protein, Total 7.1 g/dL 6.4-8.3 38 Calcium 9.9 mg/dL 8.4-10.4 38 Alkaline Phosphatase 77 U/L 10-118 38 Sgot (Ast) 24 U/L 3-40 38 SGPT (Alt) 23 U/L 7-50 38 Bilirubin, Total 0.70 mg/dL 0.30-1.20 38 Egfr (Calculated) 10/07/2011 Estimated GFR (CALCULATED) 38 Egfr 56 38, 42 Egfr, -[place] >60 38, 43 Laboratory test finding 04/09/2011 Cytology <SEE 44 NOTE> Comprehensive Metabolic 10/31/2010 Glucose 88 mg/dL 70-100 38 BUN 20 mg/dL High 4-18 38 Creatinine, Serum 0.83 mg/dL 0.50-1.10 38 Sodium 144 mmol/L 136-146 38 Potassium 3.9 mmol/L 3.5-5.3 38 Chloride 106 mmol/L 98-110 38 Carbon Dioxide 29 mmol/L 20-32 38 Albumin 4.5 g/dL 3.5-4.7 38 Protein, Total 7.1 g/dL 6.4-8.3 38 Calcium 10.3 mg/dL 8.4-10.4 38 Alkaline Phosphatase 68 U/L 10-118 38 Sgot (Ast) 23 U/L 3-40 38 SGPT (Alt) 28 U/L 7-50 38 Bilirubin, Total 0.50 mg/dL 0.30-1.20 38 Lipid Panel 10/31/2010 Cholesterol, Total 181 mg/dL <200 38 Triglycerides 202 mg/dL <150 38 HDL Cholesterol 51 mg/dL 40-60 38 Chol/HDL Cholesterol 3.5 38, 45 LDL Cholesterol, Calc. 90 mg/dL 38, 46 LDL/HDL Cholesterol 1.8 38, 47 Egfr (Calculated) 10/31/2010 Estimated GFR (CALCULATED) 38 Egfr >60 38, 48 Egfr, -[place] >60 38, 49 Laboratory test finding 10/31/2010 TSH (Thyrotropin) 1.620 uIU/ml 0.350- 5.500 38 Hepatic (Liver) Panel 04/02/2010 Albumin 4.6 g/dL 3.5-4.7 50 Protein, Total 7.4 g/dL 6.4-8.3 50 Alkaline Phosphatase 63 U/L 10-118 50 Sgot (Ast) 24 U/L 3-40 50 SGPT (Alt) 32 U/L 7-50 50 Bilirubin, Total 0.50 mg/dL 0.30-1.20 50 Bilirubin, Direct 0.12 mg/dL 0.00-0.40 50 Bilirubin, Indirect 0.38 mg/dL 0.10-1.10 50 Basic Metabolic Panel 04/02/2010 Glucose 96 mg/dL 70-100 50 BUN 14 mg/dL 4-18 50 Creatinine, Serum 1.03 mg/dL 0.50-1.10 50 Sodium 143 mmol/L 136-146 50 Potassium 4.2 mmol/L 3.5-5.3 50 Chloride 104 mmol/L 98-110 50 Carbon Dioxide 28 mmol/L 20-32 50 Calcium 9.9 mg/dL 8.4-10.4 50 Egfr (Calculated) 04/02/2010 Estimated GFR (CALCULATED) 50 Egfr 55 50, 51 Egfr, -[place] >60 50, 52 Lipid Panel 11/13/2009 Cholesterol, Total 185 mg/dL <200 53 Triglycerides 184 mg/dL <150 53 HDL Cholesterol 52 mg/dL 40-60 53 Chol/HDL Cholesterol 3.6 53, 54 LDL Cholesterol, Calc. 96 mg/dL 53, 55 LDL/HDL Cholesterol 1.8 53, 56 GFR Calculated 11/13/2009 GFR (Calculated) 59 53, 57 Comprehensive Metabolic 11/13/2009 Glucose 91 mg/dL 70-100 53 BUN 20 mg/dL High 4-18 53 Creatinine, Serum 0.97 mg/dL 0.50-1.10 53 Sodium 141 mmol/L 136-146 53 Potassium 4.0 mmol/L 3.5-5.3 53 Chloride 104 mmol/L 98-110 53 Carbon Dioxide 34 mmol/L High 20-32 53 Albumin 4.3 g/dL 3.5-4.7 53 Protein, Total 6.8 g/dL 6.4-8.3 53 Calcium 9.4 mg/dL 8.4-10.4 53 Alkaline Phosphatase 59 U/L 10-118 53 Sgot (Ast) 24 U/L 3-40 53 SGPT (Alt) 33 U/L 7-50 53 Bilirubin, Total 0.40 mg/dL 0.30-1.20 53 Basic Metabolic Panel 06/27/2009 Glucose 94 mg/dL 70-100 58 BUN 22 mg/dL High 4-18 58 Creatinine, Serum 1.17 mg/dL High 0.50-1.10 58 Sodium 143 mmol/L 136-146 58 Potassium 4.0 mmol/L 3.5-5.3 58 Chloride 103 mmol/L 98-110 58 Carbon Dioxide 29 mmol/L 20-32 58 Calcium 10.4 mg/dL 8.4-10.4 58 GFR Calculated 06/27/2009 GFR (Calculated) 48 58, 59 Comprehensive Metabolic 05/30/2009 Glucose 96 mg/dL 70-100 60 BUN 16 mg/dL 4-18 60 Creatinine, Serum 0.81 mg/dL 0.50-1.10 60 Sodium 142 mmol/L 136-146 60 Potassium 3.6 mmol/L 3.5-5.3 60 Chloride 101 mmol/L 98-110 60 Carbon Dioxide 29 mmol/L 20-32 60 Albumin 4.6 g/dL 3.5-4.7 60 Protein, Total 7.2 g/dL 6.4-8.3 60 Calcium 9.9 mg/dL 8.4-10.4 60 Alkaline Phosphatase 62 U/L 10-118 60 Sgot (Ast) 24 U/L 3-40 60 SGPT (Alt) 42 U/L 7-50 60 Bilirubin, Total 0.50 mg/dL 0.30-1.20 60 Urinalysis W/ Micro (CX) 05/30/2009 Urine Color COLORLESS Yellow 60 Urine Appearance CLEAR Clear 60 Urine Specific Carey 1.008 1.005-1.030 60 Urine Leukocytes NEGATIVE Negative 60 Urine Nitrite NEGATIVE Negative 60 Urine PH 5.0 5.0-8.0 60 Urine Protein NEGATIVE mg/dL Negative 60 Urine Glucose NEGATIVE mg/dL Negative 60 Urine Ketones NEGATIVE mg/dL Negative 60 Urine Urobilinogen NORMAL mg/dL Normal Or <1 60 Urine Bilirubin NEGATIVE Negative 60 Urine Occult Blood NEGATIVE Negative 60 Microscopic, Reflex 05/30/2009 Microscopic, Reflex NOT INDICATED 60 GFR Calculated 05/30/2009 GFR (Calculated) >60 60, 61 Ua - Micro (Fma) 12/04/2008 Appearance clear Color yellow Glucose neg Bilirubin neg Ketones neg SP Grav 1.010 Blood trace PH 6.0 Protein neg Urobil 0.2 Nitrite neg Leukocytes (Fma/CMC/Centrex) neg Hyaline - /Lpf Granular - /Lpf WBC (Fma,Centrex) 1-2 RBC 0-1 Mucus - /Lpf Epith rare /Lpf Bacteria rare /Hpf Amorphous - /Lpf Crystals, Fluid (Fma/CMC/CTX) - Z#Comments - Lipid Panel 11/01/2008 Cholesterol, Total 177 mg/dL <200 62 Triglycerides 209 mg/dL <150 62 HDL Cholesterol 48 mg/dL 40-60 62 Chol/HDL Cholesterol 3.7 62, 63 LDL Cholesterol, Calc. 87 mg/dL 62, 64 LDL/HDL Cholesterol 1.8 62, 65 Comprehensive Metabolic 11/01/2008 Glucose 95 mg/dL 70-100 62 BUN 15 mg/dL 4-18 62 Creatinine, Serum 0.88 mg/dL 0.50-1.10 62, 66 Sodium 141 mmol/L 136-146 62 Potassium 3.8 mmol/L 3.5-5.3 62 Chloride 102 mmol/L 98-110 62 Carbon Dioxide 22 mmol/L 20-32 62 Albumin 4.2 g/dL 3.5-4.7 62 Protein, Total 6.8 g/dL 6.4-8.3 62 Calcium 9.4 mg/dL 8.4-10.4 62 Alkaline Phosphatase 60 U/L 10-118 62 Sgot (Ast) 26 U/L 3-40 62 SGPT (Alt) 28 U/L 7-50 62 Bilirubin, Total 0.30 mg/dL 0.30-1.20 62 GFR Calculated 11/01/2008 GFR (Calculated) >60 62, 67 Ua - Micro (Fma) 11/01/2008 Appearance CLEAR Color YELLOW Glucose NEG Bilirubin NEG Ketones NEG SP Grav 1.010 Blood TRACE-LYSED PH 6.5 Protein NEG Urobil 0.2 Nitrite NEG Leukocytes (Fma/CMC/Centrex) NEG Hyaline - /Lpf Granular - /Lpf WBC (Fma,Centrex) 0-1 RBC 2-3 Mucus - /Lpf Epith RARE /Lpf Bacteria - /Hpf Amorphous - /Lpf Crystals, Fluid (Fma/CMC/CTX) - Z#Comments - Laboratory test 11/01/2008 Thin Prep SEE NOTE 68 finding W/HPV(Lsil/PATRICIA/Asc) GFR, Calculated 08/02/2008 GFR (Calculated) 49 62, 69 Lipid Profile 08/02/2008 Cholesterol, Total 221 mg/dL High 120-200 62, 70 HDL Cholesterol 57 mg/dL 40-60 62 LDL Cholesterol, Calc. 139 mg/dL <130 62, 71 Triglycerides 125 mg/dL 62, 72 LDL/HDL Cholesterol 2.4 62, 73 Chol/HDL Cholesterol 3.9 62, 74 Comprehensive Metabolic 08/02/2008 Glucose 101 mg/dL High 70-100 62 BUN 19 mg/dL High 4-18 62 Creatinine, Serum 1.2 mg/dL 0.5-1.2 62 Sodium 143 mmol/L 136-146 62 Potassium 3.9 mmol/L 3.5-5.3 62 Chloride 107 mmol/L 98-110 62 Carbon Dioxide 25 mmol/L 20-32 62 Albumin 4.4 g/dL 3.5-4.7 62 Protein, Total 7.1 g/dL 6.4-8.3 62 Calcium 9.9 mg/dL 8.4-10.4 62 Alkaline Phosphatase 70 U/L 10-118 62 Sgot (Ast) 25 U/L 3-40 62 SGPT (Alt) 30 U/L 7-50 62 Bilirubin, Total 0.30 mg/dL 0.30-1.20 62 Surgical Pathology 06/19/2008 Surgical Pathology <SEE 75 NOTE> Basic Metabolic 02/24/2008 BUN 20 mg/dL 6-26 Profile Calcium 9.6 mg/dL 8.6-10.2 Chloride 98 mEq/L 94-112 Creatinine 1.1 mg/dL 0.6-1.4 Carbon Dioxide 26 mEq/L 21-32 Glucose 90 mg/dL 70-105 Sodium 141 mEq/L 134-149 Potassium 3.9 mEq/L 3.6-5.5 BUN/Creat Ratio 18.5 Calc 8.0-36.0 Ua - Micro (Fma) 02/24/2008 Appearance clear Color yellow Glucose, Urine (Fma/CMC/CTX) - Bilirubin - Ketones - SP Grav <=1.005 Blood trace intact PH 5.0 Protein - Urobil 0.2eu/dl Nitrite - Leukocytes (Fma/CMC/Centrex) - Hyaline - /Lpf Granular - /Lpf WBC (Fma,Centrex) 1-2 RBC 1-2 Mucus (Fma/CBC/Centrex) - /Lpf Epith rare /Lpf Bacteria rare /Hpf Amorphous (Fma/CMC/Centrex) - /Lpf Crystals, Fluid (Fma/CMC/CTX) - Z#Comments - Lipid Profile 02/01/2008 Cholesterol 189 mg/dL 120-200 76 HDL 58 mg/dL 30-85 76 Triglycerides 116 mg/dL 30-200 76 HDL Risk Factor 3.2 CALC Low 4.2-7.0 76 LDL (Calculated) 107 CALC 0-129 76 VLDL (Calculated) 23 mg/dL 0-50 76 Comprehensive Metabolic Prof 02/01/2008 Albumin 4.1 g/dL 3.8-5.5 76 Alk. Phos. 79 U/L 30-110 76 Alt (SGPT) 19 U/L 7-35 76 Ast (Sgot) 10 U/L 5-34 76 BUN 27 mg/dL High 6-26 76, 77 Calcium 9.6 mg/dL 8.6-10.2 76 Chloride 97 mEq/L 94-112 76 Creatinine 1.4 mg/dL 0.6-1.4 76 Carbon Dioxide 29 mEq/L 21-32 76 Glucose 85 mg/dL 70-105 76 Sodium 140 mEq/L 134-149 76 Total Bilirubin 0.2 mg/dL 0.2-1.3 76 Total Protein 6.9 g/dL 6.3-8.1 76 Potassium 4.5 mEq/L 3.6-5.5 76 Globulin 2.8 g/dL 2.0-4.8 76 A/G Ratio 1.4 Calc 0.6-2.2 76 BUN/Creat Ratio 20.2 Calc 8.0-36.0 76 Ua - Micro (Fma) 01/27/2008 Appearance CLEAR Color YELLOW Glucose, Urine (Fma/CMC/CTX) NEG Bilirubin NEG Ketones NEG SP Grav >1.030 Blood MODERATE PH 5.5 Protein SSA TRACE Urobil 0.2 Nitrite NEG Leukocytes (Fma/CMC/Centrex) NEG Hyaline - /Lpf Granular - /Lpf WBC (Fma,Centrex) 0-2 RBC 5-10 Mucus (Fma/CBC/Centrex) MODERATE AMT /Lpf Epith OCC /Lpf Bacteria TRACE /Hpf Amorphous (Fma/CMC/Centrex) - /Lpf Crystals, Fluid (Fma/CMC/CTX) - Z#Comments - Comprehensive Metabolic Prof 11/04/2007 Albumin 4.3 g/dL 3.8-5.5 Alk. Phos. 70 U/L 30-110 Alt (SGPT) 22 U/L 7-35 Ast (Sgot) 20 U/L 5-34 BUN 17 mg/dL 6-26 Calcium 9.7 mg/dL 8.6-10.2 Chloride 102 mEq/L 94-112 Creatinine 1.1 mg/dL 0.6-1.4 Carbon Dioxide 25 mEq/L 21-32 Glucose 101 mg/dL 70-105 Sodium 143 mEq/L 134-149 Total Bilirubin 0.4 mg/dL 0.2-1.3 Total Protein 7.1 g/dL 6.3-8.1 Potassium 3.9 mEq/L 3.6-5.5 Globulin 2.9 g/dL 2.0-4.8 A/G Ratio 1.5 Calc 0.6-2.2 BUN/Creat Ratio 15.7 Calc 8.0-36.0 Comprehensive Metabolic Prof 09/30/2007 Albumin 4.4 g/dL 3.8-5.5 76 Alk. Phos. 70 U/L 30-110 76 Alt (SGPT) 19 U/L 7-35 76 Ast (Sgot) 22 U/L 5-34 76 BUN 19 mg/dL 6-26 76 Calcium 9.9 mg/dL 8.6-10.2 76 Chloride 104 mEq/L 94-112 76 Creatinine 1.1 mg/dL 0.6-1.4 76 Carbon Dioxide 23 mEq/L 21-32 76 Glucose 99 mg/dL 70-105 76 Sodium 142 mEq/L 134-149 76 Total Bilirubin 0.3 mg/dL 0.2-1.3 76 Total Protein 7.0 g/dL 6.3-8.1 76 Potassium 4.5 mEq/L 3.6-5.5 76 Globulin 2.6 g/dL 2.0-4.8 76 A/G Ratio 1.7 Calc 0.6-2.2 76 BUN/Creat Ratio 17.5 Calc 8.0-36.0 76 Lipid Profile 09/30/2007 Cholesterol 257 mg/dL High 120-200 76 HDL 50 mg/dL 30-85 76 Triglycerides 209 mg/dL High 30-200 76 HDL Risk Factor 5.1 CALC 4.2-7.0 76 LDL (Calculated) 165 CALC High 0-129 76 VLDL (Calculated) 42 mg/dL 0-50 76 Laboratory test finding 09/30/2007 TSH 1.27 mIU/L 0.50-6.00 76 1 Source.............Cervix Other..............Post Menopausal No. of containers..01 CYTYC Thin Prep Vial [id number] 2 This test detects fourteen high-risk HPV types (16/18/31/33/35/39/45/ 51/52/56/58/59/66/68) without differentiation. 3 NEGATIVE FOR INTRAEPITHELIAL LESION AND MALIGNANCY. 4 Satisfactory for evaluation. Endocervical and/or squamous metaplastic cells (endocervical component) are present. 5 Z12.4 6 Terrence Leung, Hydraulic Auto Jack Mechanic (ASCP) 7 The Pap smear is a screening test designed to aid in the detection of premalignant and malignant conditions of the uterine cervix. It is not a diagnostic procedure and should not be used as the sole means of detecting cervical cancer. Both false-positive and false-negative reports do occur. 8 This liquid based ThinPrep(R) pap test was screened with the use of an image guided system. 9 Please note reference interval change 10 Please note reference interval change 11 REFRIGERATED 12 Pre-diabetes: 5.7 - 6.4 Diabetes: >6.4 Glycemic control for adults with diabetes: <7.0 13 According to ATP-III Guidelines, HDL-C >59 mg/dL is considered a negative risk factor for CHD. 14 1 SST 15 According to ATP-III Guidelines, HDL-C >59 mg/dL is considered a negative risk factor for CHD. 16 CHOL/HDL Risk Ratio Levels MALE FEMALE 1/2 X Average 3.4 3.3 Average 5.0 4.4 2 X Average 9.5 7.0 3 X Average 24.0 11.0 17 Optimal under 100 mg/dl Near or above Optimal 100 - 129 mg/dl Borderline High 130 - 159 mg/dl High 160 - 189 mg/dl Very High above 190 mg/dl 18 LDL/HDL Risk Ratio Levels MALE FEMALE 1/2 X Average 1.0 1.5 Average 3.6 3.2 2 X Average 6.3 5.0 3 X Average 8.0 6.1 19 >59 mL/min/1.73m2 20 >59 mL/min/1.73m2 Note: Persistent reduction for 3 months or more in an eGFR <60 mL/min/1.73m2 defines CKD. Patients with eGFR values >=60 mL/min/1.73m2 may also have CKD if evidence of persistent proteinuria is present. Additional information may be found at [email or web address]. 21 FASTING; 1 sst 22 CHOL/HDL Risk Ratio Levels MALE FEMALE 1/2 X Average 3.4 3.3 Average 5.0 4.4 2 X Average 9.5 7.0 3 X Average 24.0 11.0 23 Optimal under 100 mg/dl Near or above Optimal 100 - 129 mg/dl Borderline High 130 - 159 mg/dl High 160 - 189 mg/dl Very High above 190 mg/dl 24 LDL/HDL Risk Ratio Levels MALE FEMALE 1/2 X Average 1.0 1.5 Average 3.6 3.2 2 X Average 6.3 5.0 3 X Average 8.0 6.1 25 >59 mL/min/1.73m2 26 >59 mL/min/1.73m2 Note: Persistent reduction for 3 months or more in an eGFR <60 mL/min/1.73m2 defines CKD. Patients with eGFR values >=60 mL/min/1.73m2 may also have CKD if evidence of persistent proteinuria is present. Additional information may be found at [email or web address]. 27 FASTING 28 >59 mL/min/1.73m2 29 >59 mL/min/1.73m2 Note: Persistent reduction for 3 months or more in an eGFR <60 mL/min/1.73m2 defines CKD. Patients with eGFR values >=60 mL/min/1.73m2 may also have CKD if evidence of persistent proteinuria is present. Additional information may be found at [email or web address]. 30 CHOL/HDL Risk Ratio Levels MALE FEMALE 1/2 X Average 3.4 3.3 Average 5.0 4.4 2 X Average 9.5 7.0 3 X Average 24.0 11.0 31 Optimal under 100 mg/dl Near or above Optimal 100 - 129 mg/dl Borderline High 130 - 159 mg/dl High 160 - 189 mg/dl Very High above 190 mg/dl 32 LDL/HDL Risk Ratio Levels MALE FEMALE 1/2 X Average 1.0 1.5 Average 3.6 3.2 2 X Average 6.3 5.0 3 X Average 8.0 6.1 33 Normal skin jian 34 1 SST 35 >59 mL/min/1.73m2 36 >59 mL/min/1.73m2 Note: Persistent reduction for 3 months or more in an eGFR <60 mL/min/1.73m2 defines CKD. Patients with eGFR values >=60 mL/min/1.73m2 may also have CKD if evidence of persistent proteinuria is present. Additional information may be found at [email or web address]. 37 [employer] DEPARTMENT OF PATHOLOGY or Extension 0646 SURGICAL PATHOLOGY REPORT PATIENT: KAYLYNN LEUNG : 1950 AGE: 61 Y SEX: F ACCT: [id number] PROCEDURE DATE: 10/28/2011 DATE RECEIVED: 10/29/2011 REQUESTING PHYSICIAN: CATARINA WEI MD LOCATION: [facility] [place] Case No. [id number] FINAL DIAGNOSIS: SKIN, LEFT UPPER ARM, BIOPSY: CUTANEOUS FIBROUS HISTIOCYTOMA (DERMATOFIBROMA). RRC/slm D/T 10/30/11 GROSS DESCRIPTION: Received in formalin, labeled Kaylynn Leung and with lab reference #[id number], consists of an oval dark brown 0.8 cm piece of skin with slight increased pigmentation in the central 0.3 cm area. Underlying dermis is pale and davis-white. Inked, trisected. TS/1 TGW/kb D/ CPT: 22470 CLINICAL DATA: [id number] PIGMENTED SPECIMEN SUBMITTED: LESION, RIGHT UPPER ARM 238.8 ADDITIONAL COPIES SENT TO: Electronically Signed by: Signed Date and Time: FATOU LEO MD PATHOLOGIST 10/30/2011 13:51 Performed at [facility], [address] [place] [address] This report may include one or more immunohistochemistry stain results which use analyte-specific reagents. The interpretation of the above immunohistochemistry stain or stains is guided by published results in the medical literature, provided package information from the trimming machine operator and by internal review of staining performance and assay validation within the Immunohistochemistry Department of [employer]. This testing has not been cleared or approved by the U.S. Food and Drug Administration (FDA). The FDA has determined that such clearance or approval is not necessary. These tests are used for clinical purposes and should not be regarded as investigational or research. Special stains and/or immunohistochemical stains were performed with appropriately stained positive and negative controls. "" 38 FASTING; 1SST 39 CHOL/HDL Risk Ratio Levels MALE FEMALE 1/2 X Average 3.4 3.3 Average 5.0 4.4 2 X Average 9.5 7.0 3 X Average 24.0 11.0 40 Optimal under 100 mg/dl Near or above Optimal 100 - 129 mg/dl Borderline High 130 - 159 mg/dl High 160 - 189 mg/dl Very High above 190 mg/dl 41 LDL/HDL Risk Ratio Levels MALE FEMALE 1/2 X Average 1.0 1.5 Average 3.6 3.2 2 X Average 6.3 5.0 3 X Average 8.0 6.1 42 >59 mL/min/1.73m2 43 >59 mL/min/1.73m2 Note: Persistent reduction for 3 months or more in an eGFR <60 mL/min/1.73m2 defines CKD. Patients with eGFR values >=60 mL/min/1.73m2 may also have CKD if evidence of persistent proteinuria is present. Additional information may be found at [email or web address]. 44 ---- RUN DATE: 04/10/11 [facility] NMI LIVE PAGE 1 RUN TIME: 1533 Specimen Inquiry RUN USER: INTERFACE -- Name: KAYLYNN LEUNG [facility] [id number] Status: REG REF Re04/09/11 Age/Sex: 61/F Unit#: [id number] Location: [facility].B. : [birth year] -- Specimen: [id number] SOUT Spec Date: 04/09/[address]: Catarina reyes MD Spec Type: CYTOLOGY Received: 04/10/11 Copies to: SOURCE ECTOCERVICAL/ENDOCERVICAL Thin Prep with Reflex HPV Test PATIENT INFORMATION ACTUAL COLLECTION DATE: 04/09/11 ? No POST MENOPAUSAL? No HYSTERECTOMY? Yes PREVIOUS ABNORMAL PAP SMEARS No ADEQUACY OF SPECIMEN Satisfactory for evaluation * Transformation zone component not identified * Scanty epithelial component * see note DIAGNOSIS NEGATIVE FOR INTRAEPITHELIAL LESION OR MALIGNANCY * NOTE Lubricant-like material (personal use versus used during examination) present hampering specimen cellularity. Lubricant use is not recommended. This Pap test was evaluated with the assistance of the MeetMoi[employer] Pap Test Imaging System. The Pap Smear is a screening test designed to aid in the detection of premalign ant and malignant conditions of the uterine cervix. It is not a diagnostic procedure a nd should not be used as the sole means of detecting cervical cancer. Both false- positiv e and false-negative reports do occur. Depending on your risk status, a Pap smear yoel uld be obtained and evaluated every one to three years. -- DEPARTMENT OF PATHOLOGY, [address] [place] [address] [facility] Permit #[id number] Massiel Hancock M.D. Human Resources Partner Dir max -- -- RUN DATE: 04/10/11 [facility] NMI LIVE PAGE 2 RUN TIME: 1533 Specimen Inquiry RUN USER: INTERFACE -- Name: KAYLYNN LEUNG Status: REG REF Re04/09/11 Age/Sex: 61/F Unit#: [id number] Location: [facility] : 54 -- -- CONTINUED -- Initial evaluation performed by Eddy GOOWDIN CT([facility]) 04/10/11 Final Interpretation electronically signed by: Eddy GOODWIN CT([facility]) 04/10/11 1532 -- -- DEPARTMENT OF PATHOLOGY, [address] [place] [address] [facility] Permit #[id number] Massiel Hancock M.D. Human Resources Partner Dir santana -- 45 CHOL/HDL Risk Ratio Levels MALE FEMALE 1/2 X Average 3.4 3.3 Average 5.0 4.4 2 X Average 9.5 7.0 3 X Average 24.0 11.0 46 Optimal under 100 mg/dl Near or above Optimal 100 - 129 mg/dl Borderline High 130 - 159 mg/dl High 160 - 189 mg/dl Very High above 190 mg/dl 47 LDL/HDL Risk Ratio Levels MALE FEMALE 1/2 X Average 1.0 1.5 Average 3.6 3.2 2 X Average 6.3 5.0 3 X Average 8.0 6.1 48 >59 mL/min/1.73m2 49 >59 mL/min/1.73m2 Note: Persistent reduction for 3 months or more in an eGFR <60 mL/min/1.73m2 defines CKD. Patients with eGFR values >=60 mL/min/1.73m2 may also have CKD if evidence of persistent proteinuria is present. Additional information may be found at [email or web address]. 50 1SST 51 >59 mL/min/1.73m2 52 >59 mL/min/1.73m2 Note: Persistent reduction for 3 months or more in an eGFR <60 mL/min/1.73m2 defines CKD. Patients with eGFR values >=60 mL/min/1.73m2 may also have CKD if evidence of persistent proteinuria is present. Additional information may be found at [email or web address]. 53 FASTING; 1 sst 54 CHOL/HDL Risk Ratio Levels MALE FEMALE 1/2 X Average 3.4 3.3 Average 5.0 4.4 2 X Average 9.5 7.0 3 X Average 24.0 11.0 55 Optimal under 100 mg/dl Near or above Optimal 100 - 129 mg/dl Borderline High 130 - 159 mg/dl High 160 - 189 mg/dl Very High above 190 mg/dl 56 LDL/HDL Risk Ratio Levels MALE FEMALE 1/2 X Average 1.0 1.5 Average 3.6 3.2 2 X Average 6.3 5.0 3 X Average 8.0 6.1 57 mL/min/1.73m2 . Normal Function or Mild Renal Disease, if clinically at risk: >or=60 Moderately decreased: 30 - 59 Severely decreased: 15 - 29 Renal Failure: <15 . Please note that the MDRD equation requires an additional adjustment for -Americans (multiply the GFR result by 1.210). . Glomerular Filtration Rate (GFR) is estimated based on the MDRD equation, which assumes a steady state for creatinine (Maris Int Med 139/2 137-149, 2003), as recommended by the National Kidney Disease Education Program in conjunction with the National Institutes of Health and the National Kidney Foundation. . Clinical conditions in which it may be necessary to measure GFR by using clearance methods include extremes of age and body size, severe malnutrition or obesity, diseases of skeletal muscle, paraplegia or quadriplegia, vegetarian diet, rapidly changing kidney function, and calculation of the dose of potentially toxic drugs that are excreted by the kidneys. 58 1 SST 59 mL/min/1.73m2 . Normal Function or Mild Renal Disease, if clinically at risk: >or=60 Moderately decreased: 30 - 59 Severely decreased: 15 - 29 Renal Failure: <15 . Please note that the MDRD equation requires an additional adjustment for -Americans (multiply the GFR result by 1.210). . Glomerular Filtration Rate (GFR) is estimated based on the MDRD equation, which assumes a steady state for creatinine (Maris Int Med 139/2 137-149, 2003), as recommended by the National Kidney Disease Education Program in conjunction with the National Institutes of Health and the National Kidney Foundation. . Clinical conditions in which it may be necessary to measure GFR by using clearance methods include extremes of age and body size, severe malnutrition or obesity, diseases of skeletal muscle, paraplegia or quadriplegia, vegetarian diet, rapidly changing kidney function, and calculation of the dose of potentially toxic drugs that are excreted by the kidneys. 60 1 URINE CONTAINER WITH URINE; 1 SST 61 mL/min/1.73m2 . Normal Function or Mild Renal Disease, if clinically at risk: >or=60 Moderately decreased: 30 - 59 Severely decreased: 15 - 29 Renal Failure: <15 . Please note that the MDRD equation requires an additional adjustment for -Americans (multiply the GFR result by 1.210). . Glomerular Filtration Rate (GFR) is estimated based on the MDRD equation, which assumes a steady state for creatinine (Maris Int Med 139/2 137-149, 2002), as recommended by the National Kidney Disease Education Program in conjunction with the National Institutes of Health and the National Kidney Foundation. . Clinical conditions in which it may be necessary to measure GFR by using clearance methods include extremes of age and body size, severe malnutrition or obesity, diseases of skeletal muscle, paraplegia or quadriplegia, vegetarian diet, rapidly changing kidney function, and calculation of the dose of potentially toxic drugs that are excreted by the kidneys. 62 FASTING; 1SST 63 CHOL/HDL Risk Ratio Levels MALE FEMALE 1/2 X Average 3.4 3.3 Average 5.0 4.4 2 X Average 9.5 7.0 3 X Average 24.0 11.0 64 Optimal under 100 mg/dl Near or above Optimal 100 - 129 mg/dl Borderline High 130 - 159 mg/dl High 160 - 189 mg/dl Very High above 190 mg/dl 65 LDL/HDL Risk Ratio Levels MALE FEMALE 1/2 X Average 1.0 1.5 Average 3.6 3.2 2 X Average 6.3 5.0 3 X Average 8.0 6.1 66 Please note change in reference range. 67 mL/min/1.73m2 . Normal Function or Mild Renal Disease, if clinically at risk: >or=60 Moderately decreased: 30 - 59 Severely decreased: 15 - 29 Renal Failure: <15 . Please note that the MDRD equation requires an additional adjustment for -Americans (multiply the GFR result by 1.210). . Glomerular Filtration Rate (GFR) is estimated based on the MDRD equation, which assumes a steady state for creatinine (Maris Int Med 139/2 137-149, 2003), as recommended by the National Kidney Disease Education Program in conjunction with the National Institutes of Health and the National Kidney Foundation. . Clinical conditions in which it may be necessary to measure GFR by using clearance methods include extremes of age and body size, severe malnutrition or obesity, diseases of skeletal muscle, paraplegia or quadriplegia, vegetarian diet, rapidly changing kidney function, and calculation of the dose of potentially toxic drugs that are excreted by the kidneys. 68 [employer] DEPARTMENT OF PATHOLOGY or Extension 4688 DATA TECHNICAL LEAD CYTOLOGY REPORT PATIENT: KAYLYNN LEUNG : 1950 AGE: 58 Y SEX: F ACCT: [id number] PROCEDURE DATE: 11/01/2008 DATE RECEIVED: 11/02/2008 REQUESTING PHYSICIAN: CATARINA WEI MD LOCATION: [facility] [place] Case No. [id number] PATIENT DATA: [id number] PARTIAL HYSTERECTOMY - ONE OVARY LEFT 1999 SPECIMEN SUBMITTED: * * (HPVII) THIN PREP W/HPV (LSIL/ASC/PATRICIA) * * VAGINAL RELEVANT HISTORY: Menopause: Y Hysterectomy: Y Prev.normal: 2004 SPECIMEN ADEQUACY SATISFACTORY FOR EVALUATION GENERAL CATEGORIZATION NEGATIVE FOR INTRAEPITHELIAL LESIONS OR MALIGNANCY ADDITIONAL COPIES SENT TO: Screened/Rescreened by: Electronically Signed by: RONNIE GONZALEZ(ASCP) Signed Date and Time: 11/07/2008 16:20 Thin Prep Pap tests are examined with an FDA-approved location-guidance system (80106). Performed @ [facility] [address] [place] [id number] "" 69 mL/min/1.73m2 . Normal Function or Mild Renal Disease, if clinically at risk: >or=60 Moderately decreased: 30 - 59 Severely decreased: 15 - 29 Renal Failure: <15 . Please note that the MDRD equation requires an additional adjustment for -Americans (multiply the GFR result by 1.210). . Glomerular Filtration Rate (GFR) is estimated based on the MDRD equation, which assumes a steady state for creatinine (Maris Int Med 139/2 137-149, 2003), as recommended by the National Kidney Disease Education Program in conjunction with the National Institutes of Health and the National Kidney Foundation. . Clinical conditions in which it may be necessary to measure GFR by using clearance methods include extremes of age and body size, severe malnutrition or obesity, diseases of skeletal muscle, paraplegia or quadriplegia, vegetarian diet, rapidly changing kidney function, and calculation of the dose of potentially toxic drugs that are excreted by the kidneys. 70 Cholesterol Risk Levels (NIH) Recommended: under 200 mg/dl Borderline : 200-239 mg/dl High Risk : Above 240 mg/dl 71 The National Cholesterol Education Program recommends the following ranges for LDL Cholesterol: Optimal under 100 mg/dl Near or above Optimal 100 - 129 mg/dl Borderline High 130 - 159 mg/dl High 160 - 189 mg/dl Very High above 190 mg/dl 72 Triglyceride Risk Levels: Normal : <150 mg/dl Borderline : 150-199 mg/dl High : 200-499 mg/dl Very High : >500 mg/dl 73 LDL/HDL Risk Ratio Levels MALE FEMALE 1/2 X Average 1.00 1.47 Average 3.55 3.22 2 X Average 6.25 5.03 3 X Average 7.99 6.14 74 CHOL/HDL Risk Ratio Levels MALE FEMALE 1/2 X Average 3.4 3.3 Average 5.0 4.4 2 X Average 9.5 7.0 3 X Average 24.0 11.0 75 ---- RUN DATE: 06/21/08 [facility] NMI LIVE PAGE 1 RUN TIME: 1357 Specimen Inquiry RUN USER: INTERFACE -- Name: ROLANKAYLYNN Sallie [facility]#: [id number] Status: REG REF Re06/19/08 Age/Sex: 58/F Unit#: [id number] Location: [address] [place] [address]. : 54 -- Specimen: [id number] SOUT Spec Date: 06/19/[address]: Piter duran MD Spec Type: SURGICAL P Received: 06/20/08 Copies to: Catarina al MD SPECIMEN BIOPSY SIGMOID COLON POLYP AT 30 CM. HISTORY POST-OP DIAGNOSIS: Sigmoid polyp CLINICAL INFORMATION: History of polyps; follow-up from 02/02 GROSS DESCRIPTION The specimen is received in formalin labelled Kaylynn Leung, Sigmoid Colon Polyp, and consists of two fragments of bach-yellow tissue, each measuring 0.4 x 0.3 x 0.3 cm. Submitted entirely, one cassette. DIAGNOSIS Sigmoid colon, polyp at 30 cm, biopsy: A) Tubular adenoma. B) No high grade dysplasia or malignancy. Signed Electronically by: BECKA SOLIS 06/21/08 1357 -- -- DEPARTMENT OF PATHOLOGY, [address] [place] [address] [facility] Permit [id number] Mehul Marsh M.D. Director Becka Solis M.D. Human Resources Partner Dir santana -- 76 FASTING 77 RESULT MYA'D Procedures Date CPT Code Description Status 05/01/2016 Mammogram Completed 04/30/2015 Mammogram Completed 06/28/2014 Colonoscopy Completed 04/28/2014 Mammogram Completed 10/28/2011 51075 Excise Benign Lesion .6-1CM Trunk/Arm/Leg Completed 10/28/2011 40790 Biopsy Skin Lesion Single Completed 04/18/2011 Mammogram Completed 11/08/2008 Mammogram Completed 06/19/2008 Colonoscopy Completed Encounters Type Date Location Provider CPT E/M Dx Office Visit 10/08/2016 8:20a [facility] Office Lety William M.D. 21521 I10 M16.11 Office Visit 07/08/2016 2:00p [facility] Leyt William M.D. 25053 I10 Office Visit 06/18/2016 2:00p [facility] Jaclyn Bautista [facility] 96350 I10 M79.651 M15.0 Office Visit 04/16/2016 8:00a [facility] Jaclyn Bautista [facility] 14247 M15.0 M79.651 I10 N39.46 E78.5 Z01.411 Office Visit 10/17/2015 8:00a [facility] Office CASSANDRA De GuzmanP 36666 M15.0 E78.2 I10 J45.30 Office Visit 04/17/2015 2:30p [facility] Enrike Rodriguez M.D. 64534 E78.2 I10 J45.30 Office Visit 11/10/2014 1:00p [facility] Enrike Rodriguez M.D. 03877 401.9 272.4 493.10 788.33 Office Visit 05/12/2014 1:00p [facility] Enrike Rodriguez M.D. 71185 V70.0 401.9 272.4 493.10 Office Visit 10/04/2013 8:50a [facility] Catarina Wei M.D. 11726 401.9 493.10 272.4 278.02 Office Visit 04/05/2013 9:00a [facility] Catarina Wei M.D. 66283 401.9 493.10 272.4 278.02 719.43 Office Visit 10/04/2012 10:00a [facility] Catarina Wei M.D. 04219 682.8 401.9 493.10 272.4 V05.8 Office Visit 09/09/2012 2:30p [facility] Office Catarina Wei M.D. 56350 682.8 Office Visit 04/13/2012 8:10a [facility] Catarina Wei M.D. 48156 V70.0 465.9 401.9 272.4 V76.51 V76.10 719.45 Office Visit 11/07/2011 8:40a [facility] Catarina Wei M.D. 08768 709.9 Office Visit 10/07/2011 8:00a [facility] Catarina Wei M.D. 31536 401.9 272.4 278.02 Office Visit 04/09/2011 1:00p [facility] Catarina Wei M.D. 31747 V70.0 272.4 401.9 278.02 V77.91 V76.51 V76.10 V76.2 Office Visit 10/08/2010 9:00a [facility] Catarina Wei M.D. 06118 401.9 788.33 272.4 477.9 278.02 Office Visit 04/09/2010 11:00a [facility] Catarina Wei M.D. 19533 401.9 788.33 Office Visit 04/02/2010 1:00p [facility] Catarina Wei M.D. 00532 401.9 272.4 278.02 788.33 Office Visit 09/26/2009 1:30p [facility] Catarina Wei M.D. 61040 401.9 278.02 272.4 Office Visit 06/27/2009 4:30p [facility] Catarina Wei M.D. 50652 401.9 278.02 272.4 Office Visit 06/27/2009 4:00p [facility] Catarina Wei M.D. 58836 401.9 278.02 272.4 Office Visit 06/20/2009 2:00p [facility] Catarina Wei M.D. 33910 401.9 278.02 272.4 Office Visit 06/13/2009 2:00p [facility] Catarina Wei M.D. 34239 401.9 272.4 278.02 Office Visit 06/06/2009 1:10p [facility] Catarina Wei M.D. 60846 401.9 272.4 278.02 Office Visit 05/30/2009 1:00p [facility] Catarina Wei M.D. 42242 401.9 272.4 278.02 599.70 Office Visit 12/04/2008 8:40a [facility] Catarina Wei M.D. 14024 401.9 272.4 278.02 599.70 Office Visit 11/01/2008 8:00a [facility] Catarina Wei M.D. 74626 V70.0 272.4 V76.10 V76.51 V76.2 401.9 V06.5 599.70 Office Visit 08/30/2008 3:00p [facility] Catarina Wei M.D. 04289 401.9 278.02 Office Visit 08/17/2008 8:00p Main Office Catarina Wei M.D. 36356 401.9 272.4 Office Visit 08/02/2008 10:10a [facility] Office Catarina Wei M.D. 31155 401.9 272.4 305.1 278.02 Office Visit 02/03/2008 8:00a [facility] Catarina Wei M.D. 04522 401.9 272.4 599.70 599.7 Office Visit 01/27/2008 9:00a [facility] Office Catarina Wei M.D. 63549 V70.0 272.4 401.9 305.1 278.02 V76.51 V76.10 428.32 599.7 Office Visit 11/04/2007 10:40a [facility] Office Catarina Wei M.D. 02610 272.4 305.1 Office Visit 10/05/2007 10:30a Main Office Catarina Wei M.D. 38220 401.9 272.4 305.1 278.02 Office Visit 09/16/2007 9:00a [facility] Office Catarina Wei M.D. 68522 401.9 272.4 305.1 477.9 Plan of Care Future Appointment(s):06/30/2017 1:00 pm - Lety William M.D. at [facility] [id number]/29/2017 - Lety William M.D.Z01.818 Encounter for other preprocedural examinationComments:Cleared for surgery. Will fax note to ordering physician.M16.11 Unilateral primary osteoarthritis, right hipNew Medication: Acetaminophen-Codeine #3 300-30 mgComments:hold NSAIDS/aspirin 1 week prior to surgery, take other medications morning of surgery try tylenol with codeine in meantime, had nausea with [id number] Essential (primary) hypertensionComments: The patient will continue to monitor blood pressure and let me know the blood pressure results if there are readings persistently above 140/80. Goal blood pressure is less than 140/80. Recommend low salt/cardiac diet and routine exercise.Follow up:[id number] Hyperlipidemia, unspecifiedComments:Goal LDL is <130, HDL >40, Triglycerides <200J45.30 Mild persistent asthma, uncomplicatedComments:stable on regimenAllComments:~B_~U_Medication Management~b _~u_ Patient Understands medications she's taking? Yes No Are there Barriers to Adherence? Yes No Has the patient been asked about herbal supplements and therapies, and OTC meds? Yes No
[2017-05-26] MEDS ORDERED: Morphine PF AMP (0.5MG/ML)* 5 MG/10 ML AMP ONE (12:52)
[2017-05-26] MEDS ORDERED: fentaNYL* 50 MCG/ML 2 ML VIAL (100 MCG VIAL) ONE ×2 (12:52→15:22)
[2017-05-26] MEDS ORDERED: Midazolam* 1 MG/ML 2 ML VIAL (2 MG) ONE (12:52)
[2017-05-26] MEDS ORDERED: Lidocaine 2% PF * 5 ML VIAL ONE (12:52)
[2017-05-26] MEDS ORDERED: Propofol* 500 MG/50 ML BTL ONE (12:52)
[2017-05-26] MEDS ORDERED: Bupivacaine 0.5% SDV PF* 10-30ML VIAL ONE (12:54)
[2017-05-26] MEDS ORDERED: EPHEDrine (Pressors)* 50 MG/ML VIAL ONE (14:02)
[2017-05-26] MEDS ORDERED: PROCHLORPERAZINE INJ 5 MG/ML 2 ML VIAL IV PRN ×2 (14:05→14:07)
[2017-05-26] MEDS ORDERED: oxyCODONE TAB* 5 MG TAB PO PRN ×2 (14:05→14:07)
[2017-05-26] MEDS ORDERED: Naloxone* 0.4 MG/ML 1 ML VIAL IV PRN ×2 (14:05→14:07)
[2017-05-26] MEDS ORDERED: Acetaminophen IV 1GM/100ML * 1,000 MG/100 ML VIAL IVPB ONE (14:05)
[2017-05-26] MEDS ORDERED: fentaNYL* 50 MCG/ML 2 ML VIAL (100 MCG VIAL) IV PRN (14:05)
[2017-05-26] MEDS ORDERED: Ondansetron INJ* 2 MG/ML VIAL IV PRN (14:07)
[2017-05-26] MEDS ORDERED: Nalbuphine* 20 MG/ML 1 ML VIAL IV PRN (14:07)
[2017-05-26] MEDS ORDERED: Phenylephrine INJ* 10 MG/ML 1 ML VIAL (10 MG) ONE (14:52)
[2017-05-26] MEDS ORDERED: Ondansetron INJ* 2 MG/ML VIAL ONE (14:53)
--- NOTE | 2017-05-26 15:13 | RAD ---
Indication: Intraoperative control film RIGHT total hip replacement. Comparison: October 17, 2016 Technique: Crosstable LEFT lateral decubitus lateral AP pelvis. Report: RIGHT hip acetabular prosthesis component in place. Femoral component test fit/reamer device in place. No fracture evident. IMPRESSION: Intraoperative control film.
[2017-05-26] MEDS ORDERED: Acetaminophen IV 1GM/100ML * 100 ML ONE (15:31)
[2017-05-26] MEDS ORDERED: Bisacodyl SUPP* 10 MG SUPP PR PRN (15:47)
[2017-05-26] MEDS ORDERED: Cyclobenzaprine TAB* 10 MG PO PRN (15:47)
[2017-05-26] MEDS ORDERED: Magnesium Hydroxide LIQ* 30 ML UDC PO PRN (15:47)
[2017-05-26] MEDS ORDERED: diPHENhydraMINE IV* 50 MG/ML 1 ml VIAL (BENADRYL) IV PRN (15:47)
[2017-05-26] MEDS ORDERED: Polyethylene Glycol 3350* 17 GM PACKET PO PRN (15:47)
[2017-05-26] MEDS ORDERED: Albuterol HFA INHALER* 8 gm MDI INH PRN (15:56)
[2017-05-26] MEDS ORDERED: Warfarin TAB(*) 6 MG PO ONE (17:00)
--- NOTE | 2017-05-26 17:00 | RAD ---
Indication: Postop following RIGHT total hip replacement. Comparison: May 13, 2017 Technique: Portable low AP pelvis and proximal femurs. AP and crosstable lateral views RIGHT hip. Report: Normally located prosthetic RIGHT hip. No periprosthetic fracture evident. Overlying soft tissue edema and subcutaneous emphysema. IMPRESSION: Unremarkable immediate postop appearance following RIGHT total hip replacement.
--- NOTE | 2017-05-26 18:49 | CONSULT ---
Subjective Date of Service: 05/26/17 Interval History: no complaints at this time, resting on str. Denies chest or shortness of breath. Denies N/V/D. s/p right hip arthroplasty. Family History: Findings - HTN- parents and siblins, [place]- Mother pancreatic and father with stomach, DM- sister Social History: Findings - smokes occasionally, last used marijuana 2 weeks ago and prior to that in November, drinks ETOH occasionally. Past Medical History: Findings - Asthma, Hypertension , osteoarthritis, hyperlipidemia Review of Systems - Measurements Intake and Output: Intake and Output Last 24 Hours 05/24/17 05/25/17 05/26/17 05/27/17 06:59 06:59 06:59 06:59 Intake Total 2550 Output Total 550 Balance 2000 Weight 214 lb Intake: IV Fluids 2550 LR 2500 NS 50ML, Cefazolin 2G 50 Output: Ruiz 350 Estimated Blood Loss 200 - Review of Systems Constitutional Symptoms: Negative: Weight Gain, Weight Loss, Weakness, Fatigue, Fever, Night Sweats, Unexplained Falls, Other Dermatology: Positive: Normal HEENT: Positive: Normal Eyes: Positive: Normal Negative: Change in Vision, Double Vision Thyroid: Positive: Normal Pulmonary: Positive: Asthma Negative: Normal, Cough, Sputum, Hemoptysis, Wheezing, Respiratory Distress, Shortness of Breath, COPD, Exercise Intolerance, Home Oxygen, Other Cardiology: Negative: Normal, Chest Pain, Shortness of Breath, Palpitations, Edema, Faintness, Syncope, Claudication, Orthopnoea Gastroenterology: Negative: Normal, Abdominal Pain, Nausea, Vomiting, Anorexia, Indigestion, Difficulty Swallowing, Heartburn, Constipation, Diarrhea, Haematemesis, Melena Genital - Urinary: Negative: Normal, Dysuria, Hematuria, Polyuria, Nocturia, Other Musculoskeletal: Positive: Arthritis, Other - right hip pain Endocrinology: Positive: Normal Negative: Diabetes Mellitus Hematologic/Lymphatic: Negative: Anemia, Easy Brusing, Hx Leukemia, Hx Lymphoma, Use of Anticoagulant, Use of Antiplatelet Drugs Neurology: Positive: Normal Psychiatry: Positive: Normal Allergic/Immunologic: Positive: Athsma Objective Active Medications: Acetaminophen (Tylenol Tab*) 975 mg PO Q8H ORLIN Stop: 05/27/17 14:59 Acetaminophen (Tylenol Tab*) 650 mg PO Q4H PRN PRN Reason: PAIN OR TEMPERATURE Hydrocodone Bitart/Acetaminophen ([place] 5-325 Tab*) 1 tab PO Q4H PRN PRN Reason: PAIN Hydrocodone Bitart/Acetaminophen ([place] 5-325 Tab*) 2 tab PO Q4H PRN PRN Reason: PAIN Albuterol (Ventolin Hfa Inhaler*) 2 puff INH Q4HR PRN PRN Reason: Asthma Bisacodyl (Dulcolax Supp*) 10 mg MD DAILY PRN PRN Reason: constipation Cyclobenzaprine HCl (Flexeril Tab*) 10 mg PO TID PRN PRN Reason: SPASMS Dexamethasone Sodium Phosphate (Decadron Iv*) 8 mg IV SLOW PU ONCE ONE Stop: 05/26/17 06:01 Last Admin: 05/26/17 11:19 Dose: 8 mg Diphenhydramine HCl (Benadryl Iv*) 12.5 mg IV Q6H PRN PRN Reason: PRURITIS Docusate Sodium (Colace Cap*) 100 mg PO BID [facility] Enoxaparin Sodium (Lovenox(*)) 40 mg SUBCUT Q24H [facility] Famotidine (Pepcid Iv*) 20 mg IV ONCE ONE Stop: 05/26/17 06:01 Last Admin: 05/26/17 11:19 Dose: 20 mg Fentanyl Citrate (Fentanyl*) 50 mcg IV Q5M PRN PRN Reason: PAIN - MODERATE Hydrochlorothiazide (Hydrodiuril Tab*) 25 mg PO QAM [facility] Lactated Ringer's (Lactated Ringers 1000 Ml Bag*) 1,000 mls @ 125 mls/hr IV PER RATE [facility] Last Admin: 05/26/17 11:13 Dose: 125 mls/hr Cefazolin Sodium 1 gm/ Sodium (Chloride) 50 mls @ 200 mls/hr IVPB Q8H [facility] Stop: 05/27/17 08:14 Lactated Ringer's (Lactated Ringers 1000 Ml Bag*) 1,000 mls @ 100 mls/hr IV PER RATE [facility] Lactulose (Lactulose*) 30 ml PO Q6H PRN PRN Reason: constipation Lidocaine/Sodium Bicarbonate (Buffered Lidocaine 0.9% Syrin*) 0.2 ml INTRADERM ONCE ONE Stop: 05/25/17 12:51 Last Admin: 05/26/17 11:12 Dose: 0.2 ml Magnesium Hydroxide (Milk Of Magnesia Liq*) 30 ml PO BID [facility] Magnesium Hydroxide (Milk Of Magnesia Liq*) 30 ml PO Q6H PRN PRN Reason: constipation Metoprolol Succinate (Toprol Xl Tab*) 25 mg PO QAM [facility] Mometasone Furoate (Asmanex 220 Mcg Mdi *) 1 puff INH QPM [facility] Montelukast Sodium (Singulair Tab*) 10 mg PO QPM [facility] Morphine Sulfate (Morphine Inj (Syringe)*) 2 mg IV Q2H PRN PRN Reason: PAIN Nalbuphine HCl (Nubain*) 5 mg IV Q6H PRN PRN Reason: pruritis Naloxone HCl (Narcan*) 0.08 mg IV Q2M PRN PRN Reason: severe induced resp depression Stop: 05/27/17 14:04 Naloxone HCl (Narcan*) 0.08 mg IV Q2M PRN PRN Reason: severe induced resp depression Non-Formulary Medication (Lisinopril [Lisinopril 40 Mg-]) 40 mg PO QAM [facility] Ondansetron HCl (Zofran Inj*) 4 mg IV Q6H PRN PRN Reason: Nausea/Vomiting Ondansetron HCl (Zofran Tab*) 4 mg PO Q6H PRN PRN Reason: NAUSEA Oxybutynin Chloride (Ditropan Tab*) 5 mg PO QAM [facility] Oxycodone HCl (Roxycodone Tab*) 5 mg PO ONCE PRN PRN Reason: PAIN - MODERATE Oxycodone HCl (Roxycodone Tab*) 5 mg PO Q3H PRN PRN Reason: Moderate Pain Stop: 05/27/17 14:06 Oxycodone HCl (Roxycodone Tab*) 10 mg PO Q4H PRN PRN Reason: SEVERE PAIN Pharmacy Profile Note (Scopolamine Patch Remove*) 1 note PATCH OFF ONCE ONE Stop: 05/29/17 06:01 Polyethylene Glycol/Electrolytes (Miralax*) 17 gm PO DAILY PRN PRN Reason: Constipation Pravastatin Sodium (Pravachol (Nf)) 20 mg PO QPM [facility] PRN Reason: Protocol Prochlorperazine Edisylate (Compazine Inj*) 5 mg IV ONCE PRN PRN Reason: NAUSEA/VOMITING Prochlorperazine Edisylate (Compazine Inj*) 5 mg IV Q6H PRN PRN Reason: NAUSEA/VOMITING Scopolamine (Transderm-Scop 1.5 Mg Patch*) 1 patch TRANSDERM ONCE ONE Stop: 05/26/17 06:01 Last Admin: 05/26/17 11:18 Dose: 1 patch Warfarin Sodium (Coumadin Tab(*)) 6 mg PO ONCE@1700 ONE PRN Reason: Protocol Stop: 05/26/17 17:01 Vital Signs - 8 hr 05/26/17 05/26/17 05/26/17 11:08 15:50 15:55 Temperature 97.7 F 96.8 F Pulse Rate 92 86 84 Respiratory 16 18 16 Rate Blood Pressure 132/65 117/74 122/78 (mmHg) O2 Sat by Pulse 95 93 97 Oximetry 05/26/17 05/26/17 05/26/17 16:00 16:05 16:15 Temperature Pulse Rate 82 79 80 Respiratory 16 16 18 Rate Blood Pressure 132/71 117/71 114/75 (mmHg) O2 Sat by Pulse 99 97 97 Oximetry 05/26/17 05/26/17 05/26/17 16:30 17:14 17:48 Temperature 97.6 F Pulse Rate 80 80 Respiratory 16 20 16 Rate Blood Pressure 135/65 128/82 (mmHg) O2 Sat by Pulse 97 97 Oximetry Oxygen Devices in Use Now: Nasal Cannula Appearance: appears comfortable sitting on the str, Eyes: No Scleral Icterus Ears/Nose/Mouth/Throat: Clear Oropharnyx, Mucous Membranes Moist Neck: NL Appearance and Movements; NL JVP, Trachea Midline Respiratory: Symmetrical Chest Expansion and Respiratory Effort, Clear to Auscultation Cardiovascular: NL Sounds; No Murmurs; No JVD, No Edema Abdominal: NL Sounds; No Tenderness; No Distention Extremities: No Edema, No Clubbing, Cyanosis, - - dressing intact to right hip, sensation and motor intact to bilat lower legs. Skin: No Rash or Ulcers, No Nodules or Sclerosis Neurological: Alert and Oriented x 3 Assessment/Plan - Billing Plan By Medical Problem: 1. s/p right hip arthroplasty- management per orthopedics including pain management 2. hypertension- I would recommend you hold hydrochlorothiazide, continue metoprolol and lisinopril 3. Hyperlipidemia: continue pravastatin 4. Asthma- continue Proair and Qvar VTE PPX: as per orthopedics Diet: would recommend heart healthy diet Code Status: full code Admission Status and Rationale: inpatient Thank you kindly for this consult will follow with you during this hospitalization.
[2017-05-26] MEDS: CMCS:Pravastatin (NF) 20 MG TAB PO SCH (19:54)
[2017-05-26] MEDS: Docusate CAP* 100 MG PO SCH (21:40)
[2017-05-26] MEDS: ceFAZolin 1 GM VIAL(*) 1 GM in NS 0.9% 50 ML* 50 ML IVPB SCH (21:41)
[2017-05-26] MEDS: Montelukast Sodium TAB* 10 MG PO SCH (21:41)
[2017-05-26] MEDS: Magnesium Hydroxide LIQ* 30 ML UDC PO SCH (21:42)
[2017-05-26] MEDS: Acetaminophen TAB* 325 MG PO SCH (23:48)
[2017-05-27] MEDS: ceFAZolin 1 GM VIAL(*) 1 GM in NS 0.9% 50 ML* 50 ML IVPB SCH ×2 (05:15→13:12)
[2017-05-27] MEDS ORDERED: Ondansetron TAB* 4 MG PO PRN (05:21)
[2017-05-27] MEDS ORDERED: HYDROcodone/ACETAMIN 5-325 MG* 1 TAB PO PRN (05:21)
[2017-05-27] MEDS ORDERED: Morphine INJ* 2 MG/ML 1 ML SYRINGE (TWO MG - NEW SYRINGE VERSION) IV PRN (05:21)
[2017-05-27 05:22] LABS: Hematocrit 33 % (35-47); Hemoglobin 10.7 g/dl (12.0-16.0); Mean Platelet Volume 8 um3 (7.4-10.4); Platelet Count 185 10^3/ul (150-450)
[2017-05-27 05:38] LABS: EGFR Non-African American 88.3 (>60); INR 0.94 (0.77-1.02)
[2017-05-27] MEDS: HYDROcodone/ACETAMIN 5-325 MG* 1 TAB PO PRN ×3 (06:12→21:29)
[2017-05-27] MEDS: Acetaminophen TAB* 325 MG PO SCH (08:07)
--- NOTE | 2017-05-27 08:28 | PN ---
Progress Note - Progress Note Date of Service: 05/27/17 SOAP: Subjective: []Patient seen OOB in chair. She did well walking with PT and states that her R hip pain is no worse than it was prior to surgery. She denies CP, SOB, dizziness or nausea. Objective: [] Vital Signs Temp 98.0 F 05/27/17 07:16 Pulse 70 05/27/17 07:16 Resp 17 05/27/17 08:00 BP 124/72 05/27/17 08:27 Pulse Ox 98 05/27/17 08:00 Intake & Output 05/26/17 05/27/17 05/27/17 18:59 06:59 18:59 Intake Total 2550 1915 Output Total 550 975 Balance 2000 940 Weight 214 lb Intake: IV Fluids 2550 1005 LR 2500 1005 NS 50ML, Cefazolin 2G 50 IVPB 60 ABX - CEFAZOLIN 60 Oral 850 Output: Ruiz 350 975 Estimated Blood Loss 200 Laboratory Last Values Hgb 10.7 g/dl (12.0-16.0) L 05/27/17 05:08 Hct 33 % (35-47) L 05/27/17 05:08 Plt Count 185 10^3/ul (150-450) 05/27/17 05:08 MPV 8 um3 (7.4-10.4) 05/27/17 05:08 INR (Anticoag Therapy) 0.94 (0.77-1.02) 05/27/17 05:08 Sodium 135 mmol/L (133-145) 05/27/17 05:08 Potassium 3.7 mmol/L (3.5-5.0) 05/27/17 05:08 Chloride 104 mmol/L (101-111) 05/27/17 05:08 Carbon Dioxide 27 mmol/L (22-32) 05/27/17 05:08 Anion Gap 4 mmol/L (2-11) 05/27/17 05:08 BUN 10 mg/dL (6-24) 05/27/17 05:08 Creatinine 0.67 mg/dL (0.51-0.95) 05/27/17 05:08 Est GFR ( Amer) 113.6 (>60) 05/27/17 05:08 Est GFR (Non-Af Amer) 88.3 (>60) 05/27/17 05:08 BUN/Creatinine Ratio 14.9 (8-20) 05/27/17 05:08 Glucose 114 mg/dL (70-100) H 05/27/17 05:08 Calcium 8.7 mg/dL (8.6-10.3) 05/27/17 05:08 General: Well appearing, NAD RLE:Dressing CDI. DF/PF intact. BL LE: 1+ DP pulses. Sensation intact distally. Calves supple and nontender without erythema, edema or palpable cords. Assessment: []POD 1 sp right total hip arthroplasty 05/26 Dr Armendariz Plan: []WBAT PT/OT lovenox in house, coumadin 8 mg. Nathanael [place] at [place], bottle caser aware
[2017-05-27] MEDS: Docusate CAP* 100 MG PO SCH ×2 (08:30→21:28)
[2017-05-27] MEDS: Magnesium Hydroxide LIQ* 30 ML UDC PO SCH ×2 (08:30→21:28)
[2017-05-27] MEDS: Lisinopril TAB* 10 MG PO SCH (08:30)
[2017-05-27] MEDS: Oxybutynin TAB* 5 MG PO SCH (08:30)
[2017-05-27] MEDS: Metoprolol Succinate XL TAB* 25 MG PO SCH (08:30)
[2017-05-27] MEDS ORDERED: Hydrochlorothiazide TAB* 25 MG PO SCH (09:00)
[2017-05-27] MEDS: oxyCODONE TAB* 5 MG TAB PO PRN (10:32)
[2017-05-27] MEDS: Enoxaparin(*) 40 MG/0.4 ML SYR SUBCUT SCH (11:38)
[2017-05-27] MEDS ORDERED: Acetaminophen TAB* 325 MG PO PRN (15:00)
[2017-05-27] MEDS ORDERED: Warfarin TAB(*) 4 MG PO ONE (17:00)
[2017-05-27] MEDS: CMCS:Pravastatin (NF) 20 MG TAB PO SCH (17:54)
[2017-05-27] MEDS: Mometasone 220 MCG MDI INH SCH (17:56)
--- NOTE | 2017-05-27 18:45 | PN ---
Subjective Date of Service: 05/27/17 Interval History: feeling well, c/o right hip pain, denies chest pain or shortness of breath, denies N/V/D Family History: Findings - HTN- parents and siblins, [place]- Mother pancreatic and father with stomach, DM- sister Social History: Findings - smokes occasionally, last used marijuana 2 weeks ago and prior to that in November, drinks ETOH occasionally. Past Medical History: Findings - Asthma, Hypertension , osteoarthritis, hyperlipidemia Objective Active Medications: Acetaminophen (Tylenol Tab*) 650 mg PO Q4H PRN PRN Reason: PAIN OR TEMPERATURE Hydrocodone Bitart/Acetaminophen ([place] 5-325 Tab*) 1 tab PO Q4H PRN PRN Reason: PAIN Hydrocodone Bitart/Acetaminophen ([place] 5-325 Tab*) 2 tab PO Q4H PRN PRN Reason: PAIN Last Admin: 05/27/17 13:12 Dose: 2 tab Albuterol (Ventolin Hfa Inhaler*) 2 puff INH Q4HR PRN PRN Reason: Asthma Bisacodyl (Dulcolax Supp*) 10 mg NE DAILY PRN PRN Reason: constipation Cyclobenzaprine HCl (Flexeril Tab*) 10 mg PO TID PRN PRN Reason: SPASMS Diphenhydramine HCl (Benadryl Iv*) 12.5 mg IV Q6H PRN PRN Reason: PRURITIS Docusate Sodium (Colace Cap*) 100 mg PO BID [facility] Last Admin: 05/27/17 08:30 Dose: 100 mg Enoxaparin Sodium (Lovenox(*)) 40 mg SUBCUT Q24H [facility] Last Admin: 05/27/17 11:38 Dose: 40 mg Lactated Ringer's (Lactated Ringers 1000 Ml Bag*) 1,000 mls @ 100 mls/hr IV PER RATE [facility] Last Admin: 05/27/17 03:45 Dose: 100 mls/hr Lactulose (Lactulose*) 30 ml PO Q6H PRN PRN Reason: constipation Lisinopril (Prinivil Tab*) 40 mg PO QAM [facility] Last Admin: 05/27/17 08:30 Dose: 40 mg Magnesium Hydroxide (Milk Of Magnesia Liq*) 30 ml PO BID [facility] Last Admin: 05/27/17 08:30 Dose: 30 ml Magnesium Hydroxide (Milk Of Magnesia Liq*) 30 ml PO Q6H PRN PRN Reason: constipation Metoprolol Succinate ([facility] Xl Tab*) [facility] Last Admin: 05/27/17 08:30 Dose: 25 mg Mometasone Furoate (Asmanex 220 Mcg Mdi *) 1 puff INH QPM [facility] Last Admin: 05/27/17 17:56 Dose: Not Given Montelukast Sodium (Singulair Tab*) 10 mg PO QPM [facility] Last Admin: 05/26/17 21:41 Dose: 10 mg Morphine Sulfate (Morphine Inj (Syringe)*) 2 mg IV Q2H PRN PRN Reason: PAIN Ondansetron HCl (Zofran Tab*) 4 mg PO Q6H PRN PRN Reason: NAUSEA Oxybutynin Chloride (Ditropan Tab*) [facility] Last Admin: 05/27/17 08:30 Dose: 5 mg Oxycodone HCl (Roxycodone Tab*) 10 mg PO Q4H PRN PRN Reason: SEVERE PAIN Last Admin: 05/27/17 10:32 Dose: 10 mg Pharmacy Profile Note (Scopolamine Patch Remove*) 1 note PATCH OFF ONCE ONE Stop: 05/29/17 06:01 Pharmacy Profile Note (Coumadin Daily Reminder*) 1 note FOLLOW UP 1700 [facility] Last Admin: 05/27/17 17:55 Dose: 1 note Polyethylene Glycol/Electrolytes (Miralax*) 17 gm PO DAILY PRN PRN Reason: Constipation Pravastatin Sodium (Pravachol (Nf)) 20 mg PO QPM [facility] PRN Reason: Protocol Last Admin: 05/27/17 17:54 Dose: 20 mg Vital Signs - 8 hr 05/27/17 05/27/17 05/27/17 11:16 13:09 13:12 Temperature 98.0 F Pulse Rate 70 Respiratory 17 16 20 Rate Blood Pressure 96/54 (mmHg) O2 Sat by Pulse 94 Oximetry 05/27/17 05/27/17 05/27/17 15:48 15:59 16:00 Temperature 98.5 F Pulse Rate 76 Respiratory 18 Rate Blood Pressure 89/43 110/52 (mmHg) O2 Sat by Pulse 95 95 Oximetry 05/27/17 05/27/17 16:21 17:57 Temperature Pulse Rate Respiratory 18 Rate Blood Pressure 100/52 (mmHg) O2 Sat by Pulse Oximetry Oxygen Devices in Use Now: Nasal Cannula Appearance: awake, alert, appears comfortable Eyes: No Scleral Icterus Ears/Nose/Mouth/Throat: Clear Oropharnyx, Mucous Membranes Moist Neck: NL Appearance and Movements; NL JVP, Trachea Midline Respiratory: Symmetrical Chest Expansion and Respiratory Effort, Clear to Auscultation Cardiovascular: NL Sounds; No Murmurs; No JVD, RRR, No Edema Abdominal: NL Sounds; No Tenderness; No Distention Extremities: No Edema, No Clubbing, Cyanosis Skin: No Rash or Ulcers Neurological: Alert and Oriented x 3, NL Sensation, NL Muscle Strength and Tone Nutrition: Taking PO's Result Diagrams: 05/27/17 05:08 05/27/17 05:08 Assess/Plan/Problems-Billing 1. s/p elective right hip arthroplasty- management per orthopedics including pain management 2. hypertension-stable will hold HCTZ , continue lisinopril and metoprolol mild hypotension noted today - Patient Problems (1) Hypertension Current Visit: Yes Status: Acute Code(s): I10 - ESSENTIAL (PRIMARY) HYPERTENSION SNOMED Code(s): 62518715 Comment: Stopped HCTZ Will continue lisinopril and metoprolol will continue to monitor BP (2) Status post total replacement of right hip Current Visit: Yes Status: Acute Code(s): Z96.641 - PRESENCE OF RIGHT ARTIFICIAL HIP JOINT SNOMED Code(s): 796729853579 Comment: management per orthopedics (3) Hyperlipidemia Current Visit: Yes Status: Acute Code(s): E78.5 - HYPERLIPIDEMIA, UNSPECIFIED SNOMED Code(s): 20719593 Comment: continue pravastatin (4) Asthma Current Visit: Yes Status: Acute Code(s): J45.909 - UNSPECIFIED ASTHMA, UNCOMPLICATED SNOMED Code(s): 797652933 Comment: stable - continue home medications QVAR and proair (5) DVT prophylaxis Current Visit: Yes Status: Acute Code(s): SCB0667 - SNOMED Code(s): 408691149 Comment: management per orthopedics (6) Full code status Current Visit: Yes Status: Acute Code(s): Z78.9 - OTHER SPECIFIED HEALTH STATUS SNOMED Code(s): 265112084 Status and Disposition: Inpatient- discharge when medically cleared by orthopedics
[2017-05-27] MEDS: Montelukast Sodium TAB* 10 MG PO SCH (21:29)
--- NOTE | 2017-05-27 22:49 | OP ---
DATE OF OPERATION: 05/26/17 - ROOM #346 DATE OF : 54 SURGEON: Triny Armendariz MD LINE BUILDER: SHARIF Acosta. Ms. Leung did help throughout the procedure with preparation of the leg, wound retraction, manipulation of the hip, and wound closure. ANESTHESIOLOGIST: Dr. Silverman. ANESTHESIA: Spinal. PRE-OP DIAGNOSIS: Severe end-stage degenerative osteoarthritis of the right hip joint. POST-OP DIAGNOSES: Severe end-stage degenerative osteoarthritis of the right hip joint, subchondral cyst in the acetabulum. OPERATIVE PROCEDURE: Right total hip arthroplasty with acetabular subchondral cyst, bone autografting from femoral head autograft. COMPLICATIONS: None. ESTIMATED BLOOD LOSS: 300 cc. HARDWARE USED: This is Davis uncemented total hip hardware. For the cup, a Trident 46C. For the insert, a Trident X3 0-degree 32C, a single 60 mm screw. For the stem, an Accolade TMZF, size 3 with a 127-degree neck angle. For the head, a Biolox delta ceramic 40, 32 -4 femoral head. BRIEF HISTORY/INDICATIONS: Ms. Leung is a 67-year-old female with years of increasingly severe right hip pain. Radiographs showed [id number]-[id number] arthritis with obliteration of the joint space. She failed conservative treatment with physical therapy, anti-inflammatories and activity modification. She elected to undergo right total hip arthroplasty due to continued pain and decreased quality of life. Informed consent was obtained from the patient. She understood the risks of the surgery included, but were not limited to bleeding, infection, damage to nearby structures, continued pain, need for further surgery , intraoperative fracture, nerve palsy, hardware failure or loosening, dislocation, leg length discrepancy, stroke, heart attack, blood clot, and . She wished to proceed. INTRAOPERATIVE FINDINGS: Intraoperatively, the patient was noted to have severe loss of cartilage along the femoral head and acetabulum. Significant osteophyte formation along the anterior and superior acetabulum. Subchondral cyst formation on the superior weightbearing of the acetabulum, which was less than 0.5 cm in diameter. DESCRIPTION OF PROCEDURE: Ms. Leung was identified in the preanesthesia unit. Her right lower extremity was marked as the correct operative side. Informed consent was signed and placed in the chart. The patient was taken to the operating room and placed under spinal anesthesia. A Ruiz catheter was placed. She was placed in the left lateral decubitus position on the peg board. All bony prominences were well padded. Right lower extremity was prepped and draped in the usual sterile fashion. Preop time-out was made to correctly identify the patient's side and site. Appropriate perioperative antibiotics were given within 1 hour of incision. A 12-cm posterior hip incision was made with a 10 blade. This was carried down to the lateral fascial layer. New #10 blade was used to make a standard incision in the lateral fascia in line with the skin incision. A Charnley retractor was placed. The piriformis and conjoint tendons were identified. These were elevated off the posterolateral femur using electrocautery and tagged with #5 Ethibonds. Electrocautery was then used to make a standard posterolateral capsular flap. This was also tagged with #5 Ethibonds. The hip was carefully dislocated. Lesser troch to center of the femoral head measured 52 mm. An oscillating saw was used to make the appropriate femoral neck cut. The femoral head was removed and the femur was retracted anteriorly. After appropriate placement of retractors, the acetabulum was well visualized. Long- handled knife was used to sharply remove any remaining labrum from the acetabular rim. The acetabulum was sequentially reamed to a size 45. Bleeding subchondral bone bed was obtained. A 55 trial had satisfactory stability and fit. There was subchondral cyst formation noted. The cystic material was removed with the curette and this area was packed with autograft from the femoral head. Final implant chosen was a Trident hemispherical acetabular shell 46C. This was impacted into the acetabulum without difficulty. Each shell was stable. A single 60-mm screw was placed in the superoposterior quadrant for excellent stability. Insert chosen was a 0-degree Trident X3 polyethylene insert 32C. This was locked into position in the acetabulum. Stability of the insert was checked and rechecked and noted to be stable. Attention was next turned to preparation of the femur. A canal finder was used to enter the proximal femur. Femur was sequentially broached up to a size 3. Size 3 had good fit and appropriate anteversion. A 127 neck trial was chosen as well as a 32 +0 head trial. Lesser troch to the center of the femoral head measured 56 mm; therefore, a 32-forehead was chosen. Lesser troch to the center of the femoral head measured 52 mm. The hip was reduced and taken through a range of motion. The hip was stable in all positions. There was good soft tissue tension and appropriate leg length. The hip was carefully dislocated. All trials were removed. Final implant chosen was an accolade TMZF size 3 with a 127-degree neck. A Biolox delta ceramic V40 femoral head 32 -5 was chosen to the femoral head. This was impacted down to the femoral neck. The hip was reduced and taken through a range of motion. The hip was stable in all positions. The hip was copiously irrigated with sterile saline. Previously tagged capsular tendons were reapproximated to the posterolateral femur through 2 trochanteric drill holes. The lateral fascial layer was closed using interrupted #1 Vicryls. The rest of the incision was closed in a layered fashion using 0 and 2-0 Vicryls. Skin was closed using running 3-0 Monocryl and Dermabond. Sterile Adaptic, 4x4s, and paper tape were used to cover the incision. The patient's anesthesia was reversed without difficulty. She was taken to the PACU in stable condition. Intended weightbearing will be weightbearing as tolerated. Intended DVT prophylaxis will be Coumadin with a Lovenox bridge. [id number]/[facility] #: [id number] KENNY
[2017-05-28] MEDS: HYDROcodone/ACETAMIN 5-325 MG* 1 TAB PO PRN ×4 (03:59→20:02)
[2017-05-28 05:59] LABS: Hematocrit 33 % (35-47); Hemoglobin 10.6 g/dl (12.0-16.0); Mean Platelet Volume 8 um3 (7.4-10.4); Platelet Count 176 10^3/ul (150-450)
[2017-05-28 06:21] LABS: INR 1.32 (0.77-1.02)
[2017-05-28] MEDS: Docusate CAP* 100 MG PO SCH ×2 (09:09→19:58)
[2017-05-28] MEDS: Oxybutynin TAB* 5 MG PO SCH (09:09)
[2017-05-28] MEDS: Lisinopril TAB* 10 MG PO SCH (09:09)
[2017-05-28] MEDS: Metoprolol Succinate XL TAB* 25 MG PO SCH (09:09)
[2017-05-28] MEDS: Magnesium Hydroxide LIQ* 30 ML UDC PO SCH ×2 (09:11→19:58)
[2017-05-28] MEDS: Enoxaparin(*) 40 MG/0.4 ML SYR SUBCUT SCH (11:45)
--- NOTE | 2017-05-28 12:22 | PN ---
Progress Note - Progress Note Date of Service: 05/28/17 SOAP: Subjective: [] Patient seen OOB in chair. Her pain is well controlled and she has no leg numbness, fever, chills, CP, SOB or nausea. Objective: []General: Well appearing, NAD RLE: Dressing changed. Incision CDI. DF/PF intact. DP2+. Sensation intact distally. BL LE: 1+ DP pulses. Sensation intact distally. Calves supple and nontender without erythema, edema or palpable cords. Vital Signs Temp 98.7 F 05/28/17 11:11 Pulse 78 05/28/17 11:11 Resp 18 05/28/17 11:46 BP 108/55 05/28/17 11:11 Pulse Ox 96 05/28/17 11:11 Intake & Output 05/27/17 05/28/17 05/28/17 18:59 06:59 18:59 Intake Total 1349 1880 320 Output Total 800 850 Balance 549 1030 320 Intake: IV Fluids 1124 ABX - CEFAZOLIN 115 LR 1009 Oral 225 1880 320 Output: Urine 800 850 Other: Estimated Void Medium # Bowel Movements 0 # Voids 1 Laboratory Last Values Hgb 10.6 g/dl (12.0-16.0) L 05/28/17 05:37 Hct 33 % (35-47) L 05/28/17 05:37 Plt Count 176 10^3/ul (150-450) 05/28/17 05:37 MPV 8 um3 (7.4-10.4) 05/28/17 05:37 INR (Anticoag Therapy) 1.32 (0.77-1.02) H 05/28/17 05:37 Sodium 135 mmol/L (133-145) 05/27/17 05:08 Potassium 3.7 mmol/L (3.5-5.0) 05/27/17 05:08 Chloride 104 mmol/L (101-111) 05/27/17 05:08 Carbon Dioxide 27 mmol/L (22-32) 05/27/17 05:08 Anion Gap 4 mmol/L (2-11) 05/27/17 05:08 BUN 10 mg/dL (6-24) 05/27/17 05:08 Creatinine 0.67 mg/dL (0.51-0.95) 05/27/17 05:08 Est GFR ( Amer) 113.6 (>60) 05/27/17 05:08 Est GFR (Non-Af Amer) 88.3 (>60) 05/27/17 05:08 BUN/Creatinine Ratio 14.9 (8-20) 05/27/17 05:08 Glucose 114 mg/dL (70-100) H 05/27/17 05:08 Calcium 8.7 mg/dL (8.6-10.3) 05/27/17 05:08 Assessment: []POD 2 sp right total hip arthroplasty 05/26 Dr Armendariz Plan: []WBAT PT/OT lovenox in house, coumadin 4 mg Has bed at [facility], first eligible and should DC tomorrow.
--- NOTE | 2017-05-28 15:44 | PN ---
Subjective Date of Service: 05/28/17 Interval History: Ms. Leung reports feeling quite well. She denies complaint today and reports that her hip pain is well controlled. She denies chest pain, SOB, nausea, or abdominal pain. Family History: Findings - HTN- parents and siblins, CA- Mother pancreatic and father with stomach, DM- sister Social History: Findings - smokes occasionally, last used marijuana 2 weeks ago and prior to that in November, drinks ETOH occasionally. Past Medical History: Findings - Asthma, Hypertension , osteoarthritis, hyperlipidemia Objective Active Medications: Acetaminophen (Tylenol Tab*) 650 mg PO Q4H PRN Hydrocodone Bitart/Acetaminophen ([place] 5-325 Tab*) 1 tab PO Q4H PRN Hydrocodone Bitart/Acetaminophen ([place] 5-325 Tab*) 2 tab PO Q4H PRN Albuterol (Ventolin Hfa Inhaler*) 2 puff INH Q4HR PRN Bisacodyl (Dulcolax Supp*) [address] DAILY PRN Cyclobenzaprine HCl (Flexeril Tab*) 10 mg PO TID PRN Diphenhydramine HCl (Benadryl Iv*) 12.5 mg IV Q6H PRN Docusate Sodium (Colace Cap*) 100 mg PO BID ORLIN Enoxaparin Sodium (Lovenox(*)) 40 mg SUBCUT Q24H ORLIN Lactulose (Lactulose*) 30 ml PO Q6H PRN Lisinopril (Prinivil Tab*) 40 mg PO QAM ORLIN Magnesium Hydroxide (Milk Of Magnesia Liq*) 30 ml PO BID ORLIN Magnesium Hydroxide (Milk Of Magnesia Liq*) 30 ml PO Q6H PRN Metoprolol Succinate (Toprol Xl Tab*) 25 mg PO QAM ORLIN Mometasone Furoate (Asmanex 220 Mcg Mdi *) 1 puff INH QPM ORLIN Montelukast Sodium (Singulair Tab*) 10 mg PO QPM ORLIN Morphine Sulfate (Morphine Inj (Syringe)*) 2 mg IV Q2H PRN Ondansetron HCl (Zofran Tab*) 4 mg PO Q6H PRN Oxybutynin Chloride (Ditropan Tab*) 5 mg PO QAM ORLIN Oxycodone HCl (Roxycodone Tab*) 10 mg PO Q4H PRN Pharmacy Profile Note (Scopolamine Patch Remove*) 1 note PATCH OFF ONCE ONE Pharmacy Profile Note (Coumadin Daily Reminder*) 1 note FOLLOW UP 1700 ORLIN Polyethylene Glycol/Electrolytes (Miralax*) 17 gm PO DAILY PRN Pravastatin Sodium (Pravachol (Nf)) 20 mg PO QPM ORLIN Warfarin Sodium (Coumadin Tab(*)) 4 mg PO ONCE@1700 ONE Vital Signs - 8 hr 05/28/17 05/28/17 05/28/17 08:00 09:08 11:11 Temperature 98.7 F Pulse Rate 78 Respiratory 18 18 17 Rate Blood Pressure 108/55 (mmHg) O2 Sat by Pulse 96 96 Oximetry 05/28/17 05/28/17 05/28/17 11:46 12:37 14:22 Temperature Pulse Rate Respiratory 18 18 18 Rate Blood Pressure (mmHg) O2 Sat by Pulse Oximetry Oxygen Devices in Use Now: Nasal Cannula Appearance: Female sitting up in chair in NAD Eyes: No Scleral Icterus Ears/Nose/Mouth/Throat: Mucous Membranes Moist Neck: Trachea Midline Respiratory: Symmetrical Chest Expansion and Respiratory Effort, Clear to Auscultation Cardiovascular: NL Sounds; No Murmurs; No JVD, No Edema Abdominal: NL Sounds; No Tenderness; No Distention Lymphatic: No Cervical Adenopathy Extremities: No Edema Skin: No Rash or Ulcers Neurological: Alert and Oriented x 3, NL Muscle Strength and Tone Nutrition: Taking PO's Result Diagrams: 05/28/17 05:37 05/27/17 05:08 Assess/Plan/Problems-Billing Assessment: Ms. Leung is a 67 yo female with a PMH of hypertension who was admitted on with plan for an elective right total hip arthroplasty. - Patient Problems (1) Status post total replacement of right hip Comment: - Management per orthopedics. - Hgb stable at 10.6. (2) Hypertension Comment: - SBP 80-110. - Hold hctz and lisinopril. Continue metoprolol with hold parameters. (3) Asthma Comment: - Asymptomatic. - Continue albuterol. (4) Hyperlipidemia Comment: - Continue pravastatin (5) DVT prophylaxis Comment: - Lovenox with warfarin. (6) Full code status Comment: Status and Disposition: Inpatient- discharge per ortho.
[2017-05-28] MEDS ORDERED: Warfarin TAB(*) 4 MG PO ONE (17:00)
[2017-05-28] MEDS: Mometasone 220 MCG MDI INH SCH (17:21)
[2017-05-28] MEDS: CMCS:Pravastatin (NF) 20 MG TAB PO SCH (17:21)
[2017-05-28] MEDS: Montelukast Sodium TAB* 10 MG PO SCH (19:58)
[2017-05-29] MEDS: HYDROcodone/ACETAMIN 5-325 MG* 1 TAB PO PRN (05:18)
[2017-05-29 05:49] LABS: Hematocrit 35 % (35-47); Hemoglobin 11.3 g/dl (12.0-16.0); Mean Platelet Volume 9 um3 (7.4-10.4); Platelet Count 201 10^3/ul (150-450)
[2017-05-29] MEDS ORDERED: Scopolamine PATCH Remove* 1 NOTE MISC PATCH OFF ONE (06:00)
[2017-05-29 06:05] LABS: INR 1.49 (0.77-1.02)
--- NOTE | 2017-05-29 08:59 | PN ---
Progress Note - Progress Note Date of Service: 05/29/17 SOAP: Subjective: 67 y/o female s/p R RHINA by Dr Armendariz 05/26. VSS afebrile overnight. Patient reports feeling well, pain medication working well, eager for D/C. Objective: General- WEll appering, NAD, AO SItting in chair comfortably MSK- Dressing removed, incision d/c/i, no drainage noted, minimal ecchymosis, no erythema, no induration. redressed, + DF/PF, sensation intact b/l LEs. neg hoamns b/l. Vital Signs Temp 98.2 F 05/29/17 07:58 Pulse 76 05/29/17 07:58 Resp 20 05/29/17 09:18 BP 124/64 05/29/17 07:58 Pulse Ox 99 05/29/17 07:58 Intake & Output 05/28/17 05/29/17 05/29/17 18:59 06:59 18:59 Intake Total 960 1400 120 Output Total 1200 1650 Balance -240 -250 120 Intake: Oral 960 1400 120 Output: Urine 1200 1650 Other: Estimated Void Large Medium # Bowel Movements 1 1 Estimated Stool Amount Large Large # Voids 2 1 Assessment: Stable 67 y/o female s/p R RHINA by DR Armendariz 05/26. Plan: - D/C to [facility] today - Continue PT/ OT - DVT prophylaxis- coumadin at home - - Coumadin Dosin/26- 6mg 05/30- 6mg 05/31- 4mg INR check 06/01 - F/U with Dr. Armendariz within 10-14 days. Active Medications Generic Name Dose Route Start Last Admin Trade Name Freq PRN Reason Stop Dose Admin Acetaminophen 650 mg 05/27/17 15:00 Tylenol Tab* PO Q4H PRN PAIN OR TEMPERATURE Hydrocodone Bitart/Acetaminophen 1 tab 05/27/17 05:21 [place] 5-325 Tab* PO Q4H PRN PAIN Hydrocodone Bitart/Acetaminophen 2 tab 05/27/17 05:21 05/29/17 05:18 [place] 5-325 Tab* PO 2 tab Q4H PRN Administration PAIN Albuterol 2 puff 05/26/17 15:56 Ventolin Hfa Inhaler* INH Q4HR PRN Asthma Bisacodyl 10 mg 05/26/17 15:[address]ax Supp* CT DAILY PRN constipation Cyclobenzaprine HCl 10 mg 05/26/17 15:47 Flexeril Tab* PO TID PRN SPASMS Diphenhydramine HCl 12.5 mg 05/26/17 15:47 Benadryl Iv* IV Q6H PRN PRURITIS Docusate Sodium 100 mg 05/26/17 21:00 05/29/17 09:18 Colace Cap* PO 100 mg BID ORLIN Administration Enoxaparin Sodium 40 mg 05/27/17 12:00 05/28/17 11:45 Lovenox(*) SUBCUT 40 mg Q24H ORLIN Administration Lactulose 30 ml 05/26/17 15:47 05/28/17 09:08 Lactulose* PO 30 ml Q6H PRN Administration constipation Magnesium Hydroxide 30 ml 05/26/17 21:00 05/29/17 10:10 Milk Of Magnesia Liq* PO Not Given BID ORLIN Magnesium Hydroxide 30 ml 05/26/17 15:47 Milk Of Magnesia Liq* PO Q6H PRN constipation Metoprolol Succinate 25 mg 05/27/17 09:00 05/29/17 09:18 Toprol Xl Tab* PO 25 mg QAM ORLIN Administration Mometasone Furoate 1 puff 05/27/17 18:00 05/28/17 17:21 Asmanex 220 Mcg Mdi * INH Not Given QPM ORLIN Montelukast Sodium 10 mg 05/26/17 18:00 05/28/17 19:58 Singulair Tab* PO 10 mg QPM ORLIN Administration Morphine Sulfate 2 mg 05/27/17 05:21 Morphine Inj (Syringe)* IV Q2H PRN PAIN Ondansetron HCl 4 mg 05/27/17 05:21 Zofran Tab* PO Q6H PRN NAUSEA Oxybutynin Chloride 5 mg 05/27/17 09:00 05/29/17 09:18 Ditropan Tab* PO 5 mg QAM ORLIN Administration Oxycodone HCl 10 mg 05/27/17 05:21 05/29/17 09:18 Roxycodone Tab* PO 10 mg Q4H PRN Administration SEVERE PAIN Pharmacy Profile Note 1 note 05/27/17 17:00 05/28/17 17:21 Coumadin Daily Reminder* FOLLOW UP 1 note 1700 ORLIN Administration Polyethylene Glycol/Electrolytes 17 gm 05/26/17 15:47 Miralax* PO DAILY PRN Constipation Pravastatin Sodium 20 mg 05/26/17 18:00 05/28/17 17:21 Pravachol (Nf) PO 20 mg QPM ORLIN Administration Protocol
[2017-05-29] MEDS: Docusate CAP* 100 MG PO SCH (09:18)
[2017-05-29] MEDS: oxyCODONE TAB* 5 MG TAB PO PRN ×2 (09:18→13:26)
[2017-05-29] MEDS: Metoprolol Succinate XL TAB* 25 MG PO SCH (09:18)
[2017-05-29] MEDS: Oxybutynin TAB* 5 MG PO SCH (09:18)
[2017-05-29] MEDS: Magnesium Hydroxide LIQ* 30 ML UDC PO SCH (10:10)
[2017-05-29 12:03] VITALS: BP 109/66
[2017-05-29] MEDS: Enoxaparin(*) 40 MG/0.4 ML SYR SUBCUT SCH (12:27)
--- NOTE | 2017-05-29 12:43 | DS ---
CC: [facility]* DATE OF ADMISSION: 05/26/2017. DATE OF DISCHARGE: 05/29/2017. ATTENDING PHYSICIAN: Dr. Triny Armendariz* (dictated by SHARIF Vargas). CHIEF COMPLAINT: 1. Right hip pain. 2. Hypertension. 3. Asthma. 4. Elevated cholesterol. DISCHARGE DIAGNOSES: 1. Status post right total hip arthroplasty, uncomplicated. 2. Hypertension. 3. Asthma. 4. Elevated cholesterol. CONSULTATIONS: 1. Physical Therapy. 2. Occupational Therapy. 3. Medicine. PROCEDURE: Right total hip arthroplasty, uncomplicated. BRIEF HISTORY: The patient is a very pleasant, 67-year-old female with a long- standing history of end-stage osteoarthritis of the right hip who elected to undergo a right total hip arthroplasty by Dr. Armendariz on 05/26/2017 after failing conservative treatment. HOSPITAL COURSE: Ms. Leung was admitted to the hospital on 05/26/2017 where she underwent an uncomplicated right total hip arthroplasty. Estimated blood loss is 300 cc. The patient recovered on the Short Surgical Stay Unit. Her Ruiz was removed on postoperative day two and she was voiding on her own without difficulty. Her vital signs remained stable. Her pain was controlled with p.o. [place] adequately. She was working well with physical therapy. Her DVT prophylaxis was managed with Lovenox and Coumadin. By postoperative day three, she was orthopedically and medically stable for discharge to go to [facility] for further rehabilitation. PHYSICAL EXAMINATION: General: Well- appearing, no acute distress, alert and oriented, sitting in a chair comfortably. Vital Signs: Temperature 98.2, pulse rate 76, oxygen saturation 99 percent on room air, blood pressure 124/64. Examination of the right hip shows the incision to be clean, dry and intact with no signs of drainage. Mild ecchymosis around the incision site. No erythema. No tenderness or induration. Area was re- dressed. Positive dorsiflexion and plantarflexion equal bilaterally with posterior tibial pulses 2+ bilaterally. Negative Homans sign bilaterally. Sensation grossly intact in the bilateral lower extremities. LABORATORY DATA ON THE DATE OF DISCHARGE: H and H of 11.3 and 35 with an INR of 1.49. RADIOGRAPHS: Postoperative films obtained on 05/26/2017 show a right hip arthroplasty in good positioning. DISCHARGE MEDICATIONS: 1. Coumadin 2 mg tablets at 5:00 p.m. daily per physician's instructions. 2. Albuterol two puffs inhalation every 4 hours prn. 3. QVAR 80 mcg two puffs inhalation q.a.m. 4. Colace 100 mg p.o. b.i.d. 5. [place] 5/325 one to two tablets every 4 to 6 hours as needed for pain, MDD 10. 6. Singulair 10 mg p.o. q.p.m. 7. Ditropan one tablet p.o. q.a.m. 8. Pravastatin one tablet p.o. q.p.m. 20 mg. 9. EpiPen prn. 10. Equate allergy cough medicine one cap p.o. q.p.m. 11. Fexofenadine 180 mg p.o. q.p.m. 12. HydroDIURIL one tablet 25 mg p.o. q.a.m. 13. Lisinopril 40 mg p.o. q.a.m. 14. Metoprolol 25 mg p.o. q.a.m. For all blood pressure medications, please hold for systolic blood pressure less than 120 and diastolic blood pressure less than 80. CONDITION ON DISCHARGE: Stable. DISCHARGE INSTRUCTIONS: Ms. Leung is a very pleasant, 67-year-old female, status post right total hip arthroplasty, at postoperative day number three which was uncomplicated. The patient is being transferred to [facility] for further rehabilitation. She is orthopedically and medically stable for discharge. Her vital signs and labs are stable. She can restart her home medications. She will take 6 mg of Coumadin on May 29, 6 mg on May 30, and 4 mg on May 31 with a repeat INR check on June 01. She will remain weightbearing as tolerated on the right lower extremity and have physical therapy. She will continue with her [place] for pain control and take Colace up to three times a day for constipation. She will follow-up with Dr. Armnedariz in approximately 10 to 14 days for incision check and suture removal. She was instructed to go immediately to the ER should she develop chest pain or shortness of breath. Should she develop fever, increasing pain or redness, she is to call the office immediately. TANIA [place], [place] [id number]/[facility] #: [id number] KENNY
== END 2017-05-29 13:50 | DRG 470 ==
LOC: AA 10:38 → SSU 18:02
PROVIDERS: ADMIT Orthopaedic Surgery Adult Reconstructive Orthopaedic Surgery; ATTEND Internal Medicine
PROC: 0QU407Z Supplement Right Acetabulum with Autologous Tissue Substitute, Open Approach (ICD-10-PCS; 2017-05-26)
PROC: 0SR904A Replacement of Right Hip Joint with Ceramic on Polyethylene Synthetic Substitute, Uncemented, Open Approach (ICD-10-PCS; principal; 2017-05-26 13:00)
DX: M16.11 Unilateral primary osteoarthritis, right hip (principal); I95.9 Hypotension, unspecified; E78.00 Pure hypercholesterolemia, unspecified; I10 Essential (primary) hypertension; J45.909 Unspecified asthma, uncomplicated; Z79.01 Long term (current) use of anticoagulants; K59.00 Constipation, unspecified; Z90.710 Acquired absence of both cervix and uterus; Z88.8 Allergy status to other drugs, medicaments and biological substances; Z88.7 Allergy status to serum and vaccine; Z91.012 Allergy to eggs; Z82.49 Family history of ischemic heart disease and other diseases of the circulatory system; Z83.3 Family history of diabetes mellitus; Z80.0 Family history of malignant neoplasm of digestive organs; Z72.0 Tobacco use; F12.90 Cannabis use, unspecified, uncomplicated; Z72.89 Other problems related to lifestyle; E78.5 Hyperlipidemia, unspecified; M19.90 Unspecified osteoarthritis, unspecified site; N39.3 Stress incontinence (female) (male); M85.68 Other cyst of bone, other site; M25.751 Osteophyte, right hip
CPT/HCPCS: 36415; 80048; 85014; 85018; 85049; 85610; 94760; A9270-GY; C1713; C1776; J0690; J1100; J1650; J2250; J2405; J2704; J3010